=== PATIENT | female | born 1960 | race Caucasian/White ===

== ENCOUNTER 2018-10-29 17:29 | Emergency (ER) | payer OTHER ==
[~2018-10-29] VITALS: Ht 162.6 cm; Wt 59.0 kg
[~2018-10-29 17:29] MED LIST: ADVAIR 100-501 EACH INH; COMBIVENT INH14.7 GM INH; COMBIVENT RESPIM4 GM INH; OMEPRAZOLE20 MG PO; PREDNISONE10 MG PO; PREDNISONE20 MG PO; PRIMIDONE50 MG PO; PROAIR HFA8.5 GM IH; VITAMIN D2000 UNI1 PO
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
--- NOTE | 2018-10-29 20:18 | EKG ---
[facility] [address] [place], [place] [address] Signed Poor data quality, interpretation may be adversely affected Sinus tachycardia Junctional ST depression, probably normal Borderline ECG No previous ECGs available Confirmed by DENISSE MEANS MD ([id number]) on 10/29/2018 8:17:44 PM Electronically Signed By: DENISSE MEANS MD 10/29/182017 PATIENT NAME: MANDI HOWARD AGUILA Electrocardiogram DATE OF : 58 PHYSICIAN: DENISSE MEANS MD REPORT #: [id number] REPORT IS CONFIDENTIAL AND NOT TO BE RELEASED WITHOUT AUTHORIZATION
[2018-10-29] MEDS ORDERED: ULTRA-LIGHT RO1 EACH MISC (20:23)
[2018-10-29] MEDS ORDERED: KEFLEX500 MG PO (20:23)
[2018-10-29] MEDS ORDERED: NORCO 5-325 TA1 EACH PO (20:23)
== END 2018-10-29 21:28 | disposition home or self-care (01) ==
LOC: ED 17:29
PROC: 0HQLXZZ Repair Left Lower Leg Skin, External Approach (ICD-10-PCS; principal; 2018-10-29)
PROC: 0HQ1XZZ Repair Face Skin, External Approach (ICD-10-PCS; principal; 2018-10-29)
DX: S82.142A Displaced bicondylar fracture of left tibia, initial encounter for closed fracture (principal); S82.61XA Displaced fracture of lateral malleolus of right fibula, initial encounter for closed fracture; S01.81XA Laceration without foreign body of other part of head, initial encounter; Z91.048 Other nonmedicinal substance allergy status; V03.90XA Pedestrian on foot injured in collision with car, pick-up truck or van, unspecified whether traffic or nontraffic accident, initial encounter
CPT/HCPCS: 12001; 12013; 70450; 70486; 71045; 72125; 72170; 73560; 73610; 80053; 82150; 82550; 83690; 85025; 86850; 86900; 86901; 93005; 93010; 99285-25; G0480; J0690; J2270

== ENCOUNTER 2020-10-30 15:24 | Inpatient (IN) | payer MEDICAID ==
[~2020-10-30] VITALS: Ht 162.6 cm; Wt 38.7 kg
[~2020-10-30 15:24] MED LIST changes: +KEFLEX500 MG PO; +NORCO 5-325 TA1 EACH PO; +ULTRA-LIGHT RO1 EACH MISC; -VITAMIN D2000 UNI1 PO; +VITAMIN D350 MC3 PO
--- NOTE | 2020-10-30 19:15 | NUR ---
REPORT RECIEVED FROM PATIENT FINANCIAL SERVICES MANAGER
--- NOTE | 2020-10-30 19:45 | NUR ---
PT TRANSPORTED VIA STRETCHER ON BUNG REMOVER TO CCU BY THIS RN. PT ACCOMPANIED BY SISTER IN LAW TO THE CCU.
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
--- NOTE | 2020-10-30 21:19 | NUR ---
PT CALLING OUT, UNALBE TO PUSH CALL BUTTON. ASSISTED WITH REPOSITIONING PTS ARM. WILL CLOSELY MONITOR.
--- NOTE | 2020-10-30 23:56 | NUR ---
repositioned pt in bed, assisted pt with drinking water. pt denies pain or discomfort. assessment completed. lungs sound clear, breathing even and unlabored. blood pressure wnl. pt still appears pale. bony prominences protected. denies further needs. will continue to closely monitor.
--- NOTE | 2020-10-31 01:20 | NUR ---
PT RESTING WITH EYES CLOSED, BREATHING EVEN AND UNLABORED. RR=16. HEART RATE 80-85 AT REST. CALL LIGHT WITHIN REACH. WILL CONITINUE TO MONITOR.
--- NOTE | 2020-10-31 02:30 | NUR ---
ASSISTED PT WITH REPOSITIONING. ALLEVYN DRESSING PLACED ON OPEN AREA ON RIGHT ELBOW. IV FLUIDS INFUSING. ORAL CARE PROVIDED. CALL LIGHT WITHIN REACH. DENIES FURTHER NEEDS.
--- NOTE | 2020-10-31 04:30 | NUR ---
PT FLOATED ON PILLOWS. REPOSITIONED LEGS, HEELS, ELBOWS, AND NECK FOR PATIENT COMFORT. PT DENIES PAIN, BUT DOES REPORT DISCOMFORT WITH REPOSITIONING. CALL LIGHT WITHIN REACH. DENIES FURTHER NEEDS AT THIS TIME.
--- NOTE | 2020-10-31 06:36 | NUR ---
pt resting with eyes closed breathing even and unlabored. iv fluids infusing. call light within reach.
--- NOTE | 2020-10-31 07:30 | NUR ---
PATIENT SHIFT REPORT RECIEVED FROM ESL INSTRUCTIONAL ASSISTANT RN. PATIENT RESTING IN BED ASLEEP AT THIS TIME. THIS RN IN TO PLACE THUMB PUSH CALL LIGHT WITHIN REACH. WILL CONTINUE TO CLOSELY MONITOR.
--- NOTE | 2020-10-31 08:30 | NUR ---
THIS RN IN WITH PATIENT. BLINDS OPENED. PATIENT REPOSITIONED FOR COMFORT. GAVE STRAWBERRY ENSURE. ASSESSMENT COMPLETED. PATIENT NOTED TO HAVE SEVERAL ULCERS/WOUNDS FROM LYING ON THE FLORO PRIOR TO ADMISSION. SPOKE WITH PATIENT AND WILL GIVE PATIENT A BED BATH AND WASH PATIENTS HAIR. PATIENT COMPLAINS OF SOME PAIN IN HER COCCYX REGION. WILL INSPECT AREA WHEN BED BATH IS COMPLETED. SHOWED PATIENT NEW CALL LIGHT SYSTEM WITH THE 1 BUTTON. PATIENT IS ABLE TO HOLD IT IN HER HAND AND PRESS THE BUTTON EASIER THIS WAY. RICH CATHETER HAS CLEAR YELLOW URINE PRESENT. PATIENT IS VERY PLEASNT AND SOFT SPOKEN. DID SOME ROM EXERCISE WITH PATIENT PER REQUEST. WILL CONTINEU TO CLOSELY MONITOR.
--- NOTE | 2020-10-31 10:00 | NUR ---
BED BATH COMPLETED. PATIENT NOTED TO HAVE A REDDNEND BLANCHABLE AREA TO COCCYX THAT APEARS CLOSED AT THIS TIME. CLEANED AND PLACED A FOAM ADHESIVE PAD AT THIS TIME. SOME YELLOW SEROUS DRAINAGE NOTED ON BEDDING. MD MEANS IN TO SEE AREA, IT APPEARS DRAINAGE IS COMING FROM THE PATIENTS VAGINA. CLEANED AND P[LACED CLEAN LINEN UNDER PATIENT. PATIENT IS VERY FEARFUL OF FALLING ON THE GROUND. REASSURED PATIENT STAFF ARE GOING TO BE VERY CAREFUL AND TRY TO ENSURE PATIENT WILL NOT FALL. BEDRAILS UP PER PATIENT REQUEST. NEW GOWN PLACED. PATIENTS HAIR WAS WASHED AND BRAIDED. WASH CLOTH PROVIDED TO FACE. TEETH BRUSHED. CHAPSTICK ON. DURING BEDBATH THIS RN ALSO NOTED A SORE TO PATIENTS RIGHT SIDE OF HER HEAD THAT IS RAISED, SORE, AND A SMALL AREA OF A SCAB. PILLOW PLACED UNDER PATIENTS BUTTOCKS FOR COMFORT. WILL CONTINUE TO REPOSITION PATIENT. MD MEANS IN TO SEE PATIENT AFTER BATH. UPDATED ON ADDIOTNAL SKIN RELATED ISSUES. PATIENT CONTINUE STO FEEL WEK, BUT IS SLOWLY BEING ABLE TO MOVE HER EXTREMITIES. PATIENT WILL WORK WITH PT TODAY.
--- NOTE | 2020-10-31 12:09 | EKG ---
[facility] [address] [place] [address] Signed Poor data quality, interpretation may be adversely affected Sinus tachycardia Left ventricular hypertrophy with repolarization abnormality Abnormal ECG When compared with ECG of 29-OCT-2018 18:14, ST elevation now present in Inferior leads Non-specific change in ST segment in Lateral leads Nonspecific T wave abnormality now evident in Lateral leads Confirmed by DENISSE MEANS MD ([id number]) on 10/31/2020 12:09:19 PM Electronically Signed By: DENISSE MEANS MD 10/31/20 1209 PATIENT NAME: MANDI HOWARD Electrocardiogram DATE OF : 58 PHYSICIAN: DENISSE MEANS MD REPORT #: [id number] REPORT IS CONFIDENTIAL AND NOT TO BE RELEASED WITHOUT AUTHORIZATION
--- NOTE | 2020-10-31 12:19 | NUR ---
PT WORKED WITH PATIENT. PATIENT GETTING MORE MOVEMENT A LITTLE AT A ATIME. THIS RN HELPED PATIENT WITH HER CREAM OF WHEAT. DANTE IS NOT ABLE TO FEED HERSELF D/T WEAKNESS. PATIENT ATE 100% OF FOOD AND FINISHED AN ENSURE. WILL ORDER LUNCH A LITTLE BIT LATTER. PATIENT CONTINUES TO FEEL A LITTLE BETTER THAN ADMISSION. PATIENT IS NOW ABLE TO MOVE HER HANDS AND ARMS ENOUGH THAT SHE CAN DRINK FROM A CUP WITH A STRAW. ASSESSMENT REMAINS UNCHANGED OTHERWISE. WILL CONTINUE TO CLOSELY MONITOR.
--- NOTE | 2020-10-31 14:00 | NUR ---
PATIENT RESTING IN BED. REPOSITIONED FOR COMFORT. PATIENTS FAMILY CALLED AND THIS RN ASSISTED PATIENT WITH HOLDING THE PHONE. FRESH WATER PROVIDED. WILL CONTINUE TO CLOSELY MONITOR.
--- NOTE | 2020-10-31 15:32 | NUR ---
REPOSITIONED PATIENT FOR COMFORT WITH PILLOW SUPPORT. PATIENT TOLERATED WELL. PATIENT FINISHED HER LUNCH AND ATE 100% OF HER YOGURT, MASHED POTATOES, AND FRUIT. PATIENT IS MOVING HER MANDS AND ARMS MORE AND MORE AND IS STARTING TO MOVE HER LEGS. WILL CONTINUE TO CLOSELY MONITOR. NO OTHER NEEDS AT THSI TIME. WILL CONTINUE TO CLOSELY MONITOR.
--- NOTE | 2020-10-31 16:30 | NUR ---
PATIENT CALLED AGAIN AND IS UNCOMFORTABLE. REPOSITIONED PATIENT TO LAY ON HER LEFT SIDE WITH PILLOW SUPPORT. PATIENT AGREEABLE TO THIS AT THIS TIME. FRESH WARM BLANKET GIVEN. CALL LIGHT IN PATIENTS HAND. PATIENT DENIES ANY OTHER NEEDS AT THSI TIME. WILL ALLOW PATIENT TO REST ON HER SIDE.
--- NOTE | 2020-10-31 17:45 | NUR ---
PATIENT AWAKE AND REPOSITIONED TO HER BACK WITH BOTH HIPS FLOATING AT THIS TIME. MEDICATIONS GIVEN. WILL BE IN WITH PATIENT TO FEED HER DINNER.
--- NOTE | 2020-10-31 18:40 | NUR ---
THIS RN HAS BEEN IN WITH PATIENT FOR PAST HOUR. PATIENT ATE 75% OF HER SOUP, COTTAGE CHEESE, AND PEACHES. FRESH WATER PROVIDED. EDUCATED PATIENT AND DISCUSSED PLAN OF CARE WITH HER IN THE FOLLOWING DAYS ON CONTINUING TO HELP HER WITH HER STRENGTH AND NUTRITION. PATIENT VERY THANKFUL FOR THE CARE SHE HAS RECIEVED. CALL LIGHT ON PATIENTS LAP. BED LOWERED. NO OTHER NEEDS AT THIS TIME.
--- NOTE | 2020-10-31 19:20 | NUR ---
Report received, care of patient assumed at this time. Patient awake in room, call light within reach. Denies needs at this time.
--- NOTE | 2020-10-31 20:23 | NUR ---
In room for medication administration. well tolerated by patient. no issues swallowing medications. positioned pt toward right side. Son in room at this time. call light within reach. will continue to monitor.
--- NOTE | 2020-10-31 20:55 | NUR ---
SON LEFT FOR EVENING. PT REPOSITIONED AGAIN. ORAL AND RICH CARE COMPLETED. CALL LIGHT WITHIN REACH. PT DENIES FURTHER NEEDS AT THIS TIME.
--- NOTE | 2020-10-31 22:25 | NUR ---
PT RESTING WITH EYES CLOSED, BREATHING EVEN AND UNLABORED. RR16. CALL LIGHT WITHIN REACH. WILL CONTINUE TO MONITOR.
--- NOTE | 2020-11-01 | NUR ---
ASSESSMENT COMPLETED. PT ASSISTED WITH REPOSITIONING IN BED. NEW BAG OF IV FLUIDS HUNG. REPOSITIONED PILLOWS UNDER LEGS AND HIPS. PT STATES PAIN IS A TOLERABLE 2/10 AT THIS TIME. CALL LIGHT WITHIN REACH. NO FURTHER NEEDS AT THIS TIME.
--- NOTE | 2020-11-01 02:31 | NUR ---
Pt appears to be sleeping. breathing even and unlabored. rr=15. Hr 70-80 at rest. Iv fluids continue to infuse. call light within reach. will continue to monitor.
--- NOTE | 2020-11-01 04:30 | NUR ---
assessment completed. incontient pad underneath pt covered with a moderate amount of yellowish fluid. pericare completed at this time. pt repositioned in bed. call light within reach. pt denies further needs at this time.
--- NOTE | 2020-11-01 06:08 | NUR ---
PT resting with eyes closed, breatihng even and unlabored. call light within in reach, no assessed needs at this time.
--- NOTE | 2020-11-01 07:15 | NUR ---
Report received, orders acknowledged.
--- NOTE | 2020-11-01 07:42 | NUR ---
Patient sitting up in bed watching tv. Rigidity noted in upper extremities. Patient requests a sprite, which is provided. Muscle weakness noted in upper extremities and nursing staff assist patient with holding cup for patient to drink from straw. Patient denies pain, reports "I think I'm going to have a bowel movement soon." Plan for the day discussed, patient states "I'm going to take the day on." Denies further needs, call light within reach.
--- NOTE | 2020-11-01 08:00 | NUR ---
Case management in room talking with patient
--- NOTE | 2020-11-01 08:15 | NUR ---
Spoke with María and she is being feed by RN as she is unable to feed self at this point. She lives in a 1 story home and is not able to drive due to her tremors. Her son and sister in law assist her at times. She is not seen on a daily basis. Pt has not been seeing her pcp as she is no longer able to drive. He son grocery shops for her , "a little bit". Pt states she has not been taking her medications for parkinsons as she could not get the lids off her bottles. She states she does not have an income and lost her medical insurance. She has a small saving she has been living off of. She states she has been able to pay her electricity. Per RN pt arrived with multiple pressure sores as she was found down, for an unknown length of time. Attempted to call son and sister in law and realized all numbers listed are her phone number. Pt declines SNF or assisted living and plans on dc to home. Called and made a referral to APS, Wei Núñez.
--- NOTE | 2020-11-01 09:00 | NUR ---
Patient sitting up in bed watching tv. Assessment complete. Patient denies pain. Bed bath given, paula care done. Gutierrez cath continues to drain yellow urine. No vaginal discharge noted with assessment. New allevyn placed on right elbow. Small, soft BM produced. Patient cleaned and attends in place. Patient denies further needs, call light within reach.
--- NOTE | 2020-11-01 09:55 | NUR ---
V/S and I&Os done, fresh water, breakfast given, DISABILITY HEARING OFFICER helped pt. eat. RN and DISABILITY HEARING OFFICER gave bed bath, linen changed, room picked up. no other needs at this time. call light with in reach
--- NOTE | 2020-11-01 10:38 | NUR ---
Spoke with Rn and the phone number listed in the chart [phone] belongs to her sister in law Lexy. Attemped to call, but unable to reach. Mail box full.
--- NOTE | 2020-11-01 11:00 | NUR ---
Patient produced a medium, soft BM. Ernestina care provided. Patient denies pain, positioned in bed for comfort. Warm blanket provided, denies further needs. Call light within reach.
--- NOTE | 2020-11-01 11:15 | NUR ---
Occupational therapy in room working with patient
--- NOTE | 2020-11-01 11:44 | NUR ---
Patient's [id number], Lexy Roy, in room visiting with patient
--- NOTE | 2020-11-01 11:45 | NUR ---
Notified by Rn, pt's sister in law is in the room. Spoke with pt and sister in law Lexy. She is unable to provide care or stay with the pt as she is caring for her mother. She states we will need to speak with pts son. Informed I have contacted [facility]. Have requested assessment for shelter [facility], but this will not be resolved for at least 45 days. If pt goes home, she should have someone stay with her. Pt cont. to refuse SNF or [facility]. I was able to obtain correct phone numbers and called Wei Núñez at [facility] to updated. She states Bhupinder from [facility] will see pt tomorrow for an eval. I will cont. to try and reach the son, but have not been able to do yet.
--- NOTE | 2020-11-01 12:00 | NUR ---
Patient sitting up in bed visiting with family. Lunch delivered. Discussed patient's occupational therapy goal of doing her own ADLs and feeding herself. Patient agrees she wants to eat lunch independently with the understanding that nursing staff will help as needed. Case management in room talking to patient's [id number], Lexy. Medications given. Patient denies further needs, call light within reach.
--- NOTE | 2020-11-01 13:00 | NUR ---
Dr. Julian in room to assess patient and discuss POC. Orders acknowledged to D/C lopez catheter and patient status changed to med surg.
--- NOTE | 2020-11-01 13:10 | NUR ---
pt. had 2 bowels movements in the bed. RN and REEL REPAIRER cleaned pt. and bed linens. no other needs at this time. call light within reach
--- NOTE | 2020-11-01 13:22 | NUR ---
CAREER REPRESENTATIVE and RN readjusted pt. in bed and got her new warm blankets. no other needs at this time. call light within reach
--- NOTE | 2020-11-01 13:46 | NUR ---
pt. used call light to ask for a boost up in bed. RN and UTILITY ENGINEER went in and moved the pt. up in bed. no other needs at this time. call light wiht in reach
--- NOTE | 2020-11-01 14:30 | NUR ---
Patient sitting up in bed watching tv. Denies needs at this time, call light within reach.
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
--- NOTE | 2020-11-01 15:30 | NUR ---
pt. had bowel movement, COMPUTER SYSTEMS ARCHITECT cleaned pt. and bed. no other needs at this time. call light within reach
--- NOTE | 2020-11-01 15:50 | NUR ---
PHYS THERAPY IN ROOM WITH PATIENT AT THIS TIME.
[2020-11-01] MEDS ORDERED: CARBIDOPA-LEVO1 EAC1 PO (16:50)
--- NOTE | 2020-11-01 17:03 | NUR ---
Was able to speak with son, Darci. Updated to [employer] and APS and pt not wanting to go to a SNF or [facility]. He states he is aware, family want pt to go into [facility], but pt refuses. He states he would be able to stay with pt, but her home will require some repairs.
--- NOTE | 2020-11-01 17:08 | NUR ---
Patient sitting up in bed watching tv. Dinner delivered, patient denies further needs. Call light within reach.
--- NOTE | 2020-11-01 19:28 | NUR ---
REPORT GIVEN TO REHABILITATION SERVICES COUNSELOR MANDY. PT TO BE MOVED TO 120.
--- NOTE | 2020-11-01 21:06 | NUR ---
pt MOVED FROM CCU TO [facility]
--- NOTE | 2020-11-01 21:15 | NUR ---
pt REQUESTED A BED WITH CONTROLS. TRANSFERRED TO CHAIR MAX 2PA, THEN TO BED. PILLOWS PROVIDED UNDER ARMS. FEET PROPPED PER REQUEST. ASSESSMENT DONE. MULTIPLE ALLEVYNS VISUALIZED. ALL CDI. NO DRAINAGE NOTED ON WOUNDS OPEN TO AIR. BOWEL TONES HYPERACTIVE. PROVIDED WITH FRESH WATER AND SODA. BUTTON CALL LIGHT IN HAND. BED CONTROLS WITHIN REACH.
--- NOTE | 2020-11-01 22:10 | NUR ---
PT CALLED, STATED THAT SHE HAD WET ATTENDS. IN PROCESS OF CHANGING HER SHE HAD 2 INCONT STOOLS, LIQUID. PT ABLE TO ASSIST WITH THE TURNING, HANGING ON TO THE SIDE RAIL, BUT DEPENDENT ON MOVING HER LEGS. ONCE DONE, REPOSITIONED TO PT COMFORT. CALL LIGHT WITH IN REACH, LIGHTS OFF.
--- NOTE | 2020-11-02 00:14 | NUR ---
pt CALLED, PLACED ON BED VELASQUEZ. CALLED WHEN DONE. LOOSE BM WITH CHUNKS. PERICARE DONE. CALL LIGHT IN HAND. BED REMOTE WITHIN REACH. REPOSITIONED.
--- NOTE | 2020-11-02 01:00 | NUR ---
CALL LIGHT ANSWERED. pt INCONTINENT OF STOOL AND URINE. ATTENDS CHANGED. HEEL PROTECTORS PLACED ON pt REDNESS NOTED ON HEELS. CALL LIGHT BUTTON IN HAND. NO ADDITIONAL REQUESTS.
--- NOTE | 2020-11-02 02:40 | NUR ---
CALL LIGHT ON. pt PLACED ON BED VELASQUEZ, DID NOT HAVE URINE OR STOOL. BED VELASQUEZ REMOVED. ASSISTED TO REPOSITION. ASSESSMENT DONE. NO CHANGES. CALL LIGHT IN HAND.
--- NOTE | 2020-11-02 04:00 | NUR ---
FRANKY SINGLETON TO ROOM TO ASSIST pt TO REPOSITION.
--- NOTE | 2020-11-02 05:25 | NUR ---
VITALS DONE. pt RECENTLY CHANGED. NO REQUESTS AT THIS TIME. CALL LIGHT WITHIN REACH.
--- NOTE | 2020-11-02 06:23 | NUR ---
PATIENT ASSISTED ONTO BED VELASQUEZ. PATIENT HAD MEDIUM SIZED LOOSE STOOL. PATIENT IS IN BED WATCHING TV. PATIENT DENIES ANY FURTHER NEEDS AT THIS TIME. CALL LIGHT IN REACH.
--- NOTE | 2020-11-02 07:05 | NUR ---
REPORT RECEIVED FROM FRANKY MOBLEY. PT RESTING IN BED WITH HEAD OF BED ELEVATED TO 30 DEGREES. PT REPORTS HER DEPENDS ARE SOILED AGAIN, PILING CUTTER'S TO BEDSIDE TO ASSIST PT WITH DEPENDS CHANGE. PT DENIES PAIN AT THIS TIME AND REPORTS SHE FEELS ABLE TO FEED HERSELF THIS MORNING AND REPORTS "I CAN'T LIFT THE CUP AND TAKE A DRINK." PT DENIES ADDITIONAL REQUESTS OR COMPLAINTS AT THIS TIME. CALL LIGHT WITHIN REACH. BED RAILS UP.
--- NOTE | 2020-11-02 07:30 | NUR ---
MORNING ASSESSMENT AND MEDICAITON DUE. PT RESTING IN BED ON BACK WITH HEAD OF BED ELEVATED TO 10 DEGREES. PT DENIES PAIN AND NAUSEA "EXCEPT WHEN THEY MOVE ME MY SHOULDER HURTS." IV FLUSHES WELL, SALINE LOCKED, ALCOHOL CAP APPLIED. PT ORIENTED TO ALL, PT REPORTS BASELINE NEUROPATHY AND "TINGLING" IN FEET. TREMORS NOTED. COMPLETE WOUND ASSESSMENT DONE (SEE RN NOTE). MADY LIFT UP TO CHAIR. PT TOLERATED TRANSFER WELL. PT POSITIONED WITH PILLOWS TO SITTING POSITION FOR BREAKFAST. PT FEEDING SELF. CALL LIGHT WITHIN REACH. PT EASILY VIEWED FROM NURSES STATION.
--- NOTE | 2020-11-02 07:30 | NUR ---
WOUND ASSESSMENT: 1. REDNESS TO GLUTEAL AREA MEASURING 4.5 CM CIRCUMFRENCIAL, 1X1CM SKIN BREAKDOWN IN CENTER OF REDDENED AREA. ALLEVYN IN PLACE 2. STAGE 2 PRESSURE ULCER TO RIGTH HIP MEASURING 5CM X3CM. ALLEVYN IN PLACE 3. STAGE 2 PRESSURE ABOVE COCCYX MEASURING 5CM BY 2CM WITH 1 CM OF REDDENED SKIN NOTED AROUND WOUND. ALLEVYN IN PLACE 4. 1.5 CM DARKENED AREA, SCAB LIKE TO LEFT BIG TOE. OPEN TO AIR 5. 1 CM CIRCUMFRENTIAL REDDENED AREA NOTED AT BASE OF LEFT BIG TOE, OPEN TO AIR 6. 1.5 CIRCUMFRENTIAL HARD LUMP WITH .0.5 CM BLISTER IN CENTER TO PROXIMAL BOTTOM OF RIGHT FOOT - OPEN TO AIR. 7. 2.5 CM X1.5 CM REDDENED AREA WITH DRY PEELING SKIN TO RIGHT ANKLE, OPEN TO AIR. 8. 2CM X1CM SCAPED AREA TO PROXIMAL RIGHT ANKLE. OPEN TO AIR. 9. 2CM X 1CM REDDENED AREA TO MEDIAL LEFT KNEE - OPEN TO AIR. 10. 3CM X1CM STAGE 2 PRESSURE ULCER TO OUTTER, PROXIMAL RIGHT CALF. DRAINING MODERATE AMOUNTS OF YELLOW DRAINAGE ONTO DRESSING. NEW ALLEVYN APPLIED. 11. 4CM BY 4CM STAGE 1 PRESSURE ULCER TO LEFT SHOULDER, DRAINING SMALL AMOUTS OF YELLOW DRAINAGE. NEW ALLEVYN APPLIED. 12. 6 X 3 CM BRUISE TO LEFT HAND FROM PREVIOUS IV ATTEMPT. OPEN TO AIR. 13. 2CM X1CM STAGE 2 PRESSURE ULCER WITH SCAB NOTED TO RIGTH UPPER SHOULDER, ALLEVYN IN PLACE. SMALL AMOUNTS OF RED AND YELLOW DRAINAGE NOTED ON PREVIOUS DRESSING. 14. 1CM BY 0.5CM SCAB NOTED TO RIGHT ELBOW WITH SMAL AMOUNTS RED DRAINAGE ON PREVIOUS DRESSING. NEW ALLEVYN APPLIED.
--- NOTE | 2020-11-02 09:10 | NUR ---
Received call from Bhupinder Greenwood at [facility]. He would like review of pts condition. While I was speaking with him, Dr. Julian came to my office so Bhupinder was also able to discuss with Dr. He will visit pt. today for evaluation. I discussed my concerns with Bhupinder: 1. Pt is 60 and does not have any insurance and has not applied for disability. She does not have payment source for placement to a SNF or an [facility]. Pt refused both when I attempted to discuss with her. 2. Cinthya Hosea met with pt yesterday and attempted to submit for OHP. Case was flagged and Cinthya was notified, "Needs a worker Review". She is unsure if pt will qualify for insurance. Cinthya held for 1 hour attempting to clairfy but phone call was disconnected. She will try again today. 3. Patient is a 2 person assist and has multiple pressure sores. Son agreed to spend the night at the patients home, but pt will be home alone during the day if she is discharged to home. Wounds will worsen as pt is unable to walk without 2 person assist. Sister in law stated she will check on pt, but cannot provide care. 4. Pt insists on discharge to home when able, refuses if funding is found. Bhupinder asked Dr. Julian if he can recommend pt be placed, and Dr. Julian updated he has already done so and pt declined. Bhupinder and I discussed we are unable to force a patient to live in a facility. He is concerned this is a case of self harm, but Dr Julian explained pt lost her medical insurance and has not been able to cont. visits or medications as prescribed. Updated Bhupinder, I will discuss with family to check if they can encourage placement. He will see and evaluate if pt would qualify for [facility] medicaid and then pass his report on for second eval. He reminded me, this can take up to 45 days.
--- NOTE | 2020-11-02 10:16 | NUR ---
THIS RN TO ROOM TO CHECK ON PT. PT FINISHING WORK WITH PHYSICAL THERAPY. PHYSICAL THERPISTMELLY, STATE PT WAS ABLE TO AMBULTE WITH ASSISTANCE AROUND THE BED. PT BACK TO CHAIR. WARM BLANKETS PROVIDED. PT POSITIOINED WIHT PILLOWS FOR COMFORT. PT DENIES PAIN AND NAUSEA. ALLEVYN DRESSING TO RIGHT SHOULDER FALLING OFF, NEW ALLEVY APPLIED. SMALL AMOUNT OF YELLOW DRAINAGE NOTED ON RIGHT SHOULDER. PT REPORTS SHE HAS NO ADDITIONAL REQUESTS OR COMPLAINTS. CALL IN PTS RIGHT HAND.
--- NOTE | 2020-11-02 10:23 | NUR ---
DENNYS FROM [employer]ULT [employer] ARRIVED TO VISIT WITH PT. UPDATED BY THIS RN AND DENZEL, CASE MANAGEMENT. DENNYS TO ROOM TO VISIT WITH PT.
--- NOTE | 2020-11-02 10:31 | NUR ---
DAY SURGERY CALLED TO INQUIRE ABOUT WHEN THE WOUND CONSULTATION RN MAY BE ABLE TO ARRIVE TO REVIEW PTS WOUNDS. DHARMESH CHRISTOPHER RN STATES SOMEONE WILL BE INTO REVIEW WOUNDS THIS AFTERNOON.
--- NOTE | 2020-11-02 11:40 | NUR ---
THIS RN TO ROOM TO CHECK ON PT. PT REPORTS SORNESS IN HER "BACKSIDE." PT REQUESTS TO GET BACK TO BED. 2 PERSON ASSIST WITH FRONT WHEEL WALKER SLOWLY BACK TO BED. PT SHAKY ON FEET. PT ABLE TO TAKE ABOUT 4-6 SMALL STEPS, PTS FEET DIRECTED BY THIS RN. PT POSITIONED IN BED FOR COMFORT AND STATES "THAT FEELS SO GOOD." DEPENDS CHANGED, ASHLEY CARE DONE. WARM BLANKETS PROVIDED. NO ADDITIONAL REQUESTS OR COMPLAINTS. CALL LIGHT IN PTS RIGHT HAND. BED RAILS UP.
--- NOTE | 2020-11-02 12:00 | NUR ---
MEDICATION DUE. GIVEN ORDERED. PT EATING LUNCH. NO ADDITIONAL REQUESTS OR COMPLAINTS. CALL LIGHT WITHIN REACH. BED RAILS UP.
--- NOTE | 2020-11-02 13:08 | NUR ---
AFTERNON ASSESSMENT DUE. PT REST IN BED. PT REPOSITIONED TO LEFT SIDE, SUPPORTED WITH PILLOWS. PT DENIES PAIN AND NAUSEA REPORTING "I'M JUST STIFF." PT REPORTS SHE IS VERY PROUD OF HERSELF FOR WALKING THIS MORNING AND HAS BEEN DOING "CLENCHES" IN BED DIRECTED BY PHYSICAL THERAPY. PT STATES SHE IS USING BED CONTROLS TO REPOSITION HERSELF. TREMORS NOTED PER PTS BASELINE, WEAKNESS AND DIFFICULTY CONTROLING LOWER EXTREMITIES NOTED. NO CHANGES TO SKIN WOUNDS FROM THIS MORNING'S ASSESSMENT. WOUNDS REMAIN COVERED WITH ALLEVYNS, ALL ALLEVYNS C/D/I AT THIS TIME. PT UPDATED ON PLAN OF CARE AND IS EXPECTING THE WOUND NURSE THIS AFTERNOON. PTS SKIN GENERALLY DRY. LOTION APPLIED. DEPENDS DRY AT THIS TIME. PT OFFERED A SHOWER. PT DECLINES STATING "MABYE TOMORROW" PT REPORTS FEELIGN TIRED AFTER ALL THE ACITVITY THIS MORNING. NO ADDITIONAL REUESTS OR COMPLAINTS. CALL LIGHT WIHTIN REACH. BED RAILS UP. PT TALKING WITH FRIEND ON THE PHONE.
--- NOTE | 2020-11-02 14:26 | NUR ---
MED REC COMPLETE
--- NOTE | 2020-11-02 14:30 | NUR ---
Spoke with William and pt has not been signed up for the OHP. When submitted for insurance, OHP showed SS in use by another pt. Verified SS with pts sister in law from old records she had submitted to health care a few years ago. Pt and sister in law state pt lost her SS card some time ago. Sister in law states she spoke with SS today about Widows pay and they confirmed pt's number and pulled her up with the same number we have listed.
--- NOTE | 2020-11-02 14:43 | NUR ---
THIS RN TO ROOM TO CHECK ON PT. PT RESTING IN BED ON RIGHT SIDE. PT REPORTS HER DEPENDS IS WET. DEPENDS CHANGED, ASHLEY CARE DONE. PT REPOSITIONED BACK TO LEFT SIDE. PT DENIES PAIN AND NAUSEA REPORTING "ONLY STIFFINESS." PT DENIES ADDITIONAL REQUESTS OR COMPLAINTS. PT TALKING ON PHONE WITH FRIEND. BED RAILS UP. CALL LIGHT WITHIN REACH.
--- NOTE | 2020-11-02 15:31 | NUR ---
WOUND CONSULT NURSE, DHARMESH CHRISTOPHER, CALLED AGAIN. STATES SHE WILL BE HERE WITHIN THE NEXT HALF HOUR.
--- NOTE | 2020-11-02 15:37 | NUR ---
Called and spoke with Mi Sosa at [facility], asked if Bhupinder Greenwood and spoken with her after his evaluation. He has not done so, but Wei stokes [facility] has. Updated given on the case, we then discussed pt does not have OHP, SSI, or medicaid. Per Mi, if pt does not have any of the above, she does not qualify for any of their services. She request I call her back, when and if pt is able to get insurance from the OHP.
--- NOTE | 2020-11-02 15:48 | NUR ---
THIS RN TO ROOM WITH MD FOR ROUNDS. PT DENIES PAIN AND NAUSEA. MD REVIEWS COMPLETE WOUND ASSESSMENT LIST. PT REPOSITIONED TO BACK. KNEES AND ARMS SUPPORTED WITH PILLOWS. HEEL PROTECTORS IN PLACE. PT DENIES ADDITIONAL REQUESTS OR COMPLAINTS. CALL LIGHT WIHTIN REACH. BED RAILS UP.
--- NOTE | 2020-11-02 16:43 | NUR ---
DR. MEANS CALLED REGARDING TWO DOSES OF LEVO/CARBO SEEN IN EMAR. DR. MEANS STATES HE RECENTLY CHANGED THE TIMING OF THE LEVO/CARBO TO 7, 11, 15, AND 19 AND ONLY ONE DOES IS TO BE GIVEN NOW. THIS RN TO ROOM. PT WORKING WITH WOUND CONSULTATION RN. MEDICATION GIVEN. PHARMCIST CALLED TO RESOLVE SECOND DOSE IN EMAR. PT DENIES ADDITIONAL REQUESTS OR COMPLAINTS. CALL LIGHT WITHIN REACH. BED RAILS UP.
--- NOTE | 2020-11-02 16:56 | NUR ---
RETURN CALL TO PTS SON HELEN. HELEN UPDATED AND STATES HIS QUESTIONS HAVE BEEN ANSWERED. CALL TRANSFERED TO ROOM SO HELEN CAN TALK WITH HIS MOTHER. PT ASSISTED WITH ANSWERING CALL.
--- NOTE | 2020-11-02 17:07 | NUR ---
JOSE [id number]: PT IS SEEN FOR A WOUND CONSULT OF MULTIPLE WOUNDS. THE PT REPORTS HAVING FALLEN AT HOME AND WAS LAYING ON HER RIGHT SIDE FOR A FEW DAYS BEFORE BEING HELPED. SHE HAS VARIOUS WOUNDS COVERING HER BODY FOLLOWS: -RIGHT SHOULDER: UNSTAGEABLE PRESSURE INJURY WITH STABLE ESCHAR -RIGHT LATERAL ELBOW: STAGE II PRESSURE INJURY -RIGHT SUPERIOR HIP: UNSTAGEABLE PRESSURY INJURY WITH ADHERENT SLOUGH -RIGHT INFERIOR HIP: UNSTAGEABLE PRESSURE INJURY WITH ADHERENT SLOUGH -RIGHT LATERAL CALF: UNSTAGEABLE PRESSURE INJURY WITH ADHERENT SLOUGH -RIGHT LATERAL ANKLE: UNSTAGEABLE PRESSURE INJURY WITH STABLE ESCHAR -LEFT SHOULDER: STAGE II PRESSURE INJURY -LEFT MEDIAL KNEE: BLACHABLE AREA OF LOCALIZED REDNESS, COVERED WITH FOAM -LEFT MEDIAL FOOT: STAGE II PRESSURE INJURY -COCCYX: BLANCHABLE AREA OF LOCALIZED REDNESS, COVERED WITH FOAM ALL MEASUREMENTS AND DRESSING/TREATMENTS ARE PROVIDED IN THE COMPLEX WOUND ASSESSMENT. IT IS RECOMMENDED THAT THE DRESSINGS BE LEFT IN PLACE FOR LONG POSSIBLE WITH THE IODOSORB IN PLACE; CHANGE DRESSINGS NEEDED FOR SOILING. THIS RN WILL ATTEMPT TO COME SEE THE PT THIS Sunday11/04/20 TO REASSESS HER WOUNDS.
--- NOTE | 2020-11-02 17:07 | NUR ---
PT HERE FOR SEPSIS. PT UP WITH 2 PERSON ASSIST AND FRONT WHEEL WALKER FOR PHYSICAL THERAPY, UP TO CHAIR AND BACK TO BED THIS SHIFT. PT TOELRATING REGULAR DIET AND ABLE TO FEED HERSELF THIS SHIFT. PT CONTINUES TO BE VERY UNSTEADY ON FEET AND HAS DIFFICTULTY WITH AMBULATION. TIME SCHEDULE FOR PTS LEVO/CARBO CHANGED BY MD THIS SHIFT. MULTIPLE SKIN WOUNDS PRESENT. WOUND NURSE CONSULTATIONS THIS SHIFT WITH NEW DRESSINGS IN PLACE. PT INCONTINANT AT BASELINE, VOIDING QUANTITY SUFFICIENT, DEPENDS IN PLACE, ASHLEY CARE DONE. PT USES CALL LIGHT APPROPRIATLY.
--- NOTE | 2020-11-02 17:33 | NUR ---
DINNER ARRIVED. THIS RN TO ROOM TO CHECK ON PT. DINNER TRAY ADJUSTED FOR PTS EASE OF EATING. PT ASSISTED WITH OPENING CONTAINERS. PT DENIES PAIN, NAUSE AND ADDITIONAL REQUESTS CALL LIGHT WITHIN REACH. BED RAILS UP.
--- NOTE | 2020-11-02 18:11 | NUR ---
THIS RN TO ROOM TO CHECK ON PT. PT RESTING IN BED WITH EYES CLOSED. HEAD OF BED ELEVATED TO 40 DEGREES. PT RESTING ON BACK WITH HIPS FLOATED. RESPIRATIONS EVEN AND UNLABORED. CALL LIGHT WITHIN REACH. BED RAILS UP.
--- NOTE | 2020-11-02 18:52 | NUR ---
MEDICATION DUE. THIS RN TO ROOM TO CHECK ON PT. PT REPORTS HER DEPENDS ARE DRY. PT REPOSITIONED TO RIGHT SIDE WITH HEAD OF BED ELEVATED TO 30 DEGREES. MEDICATION GIVEN (SEE MAR). PT REPORTS FEELING COMFORTABLE, PILLOWS USED FOR SUPPORT. HEEL PROTECTORS IN PLACE. BED RAILS UP. CALL LIGHT IN PTS RIGHT HAND.
--- NOTE | 2020-11-02 19:41 | NUR ---
REPORT RECEIVED FROM FAISAL WILKINS. PT LAYING IN BED SLEEPING AT THIS TIME AND WAS LEFT UNDISTURBED. WILL CONTINUE PLAN OF CARE.
--- NOTE | 2020-11-02 19:56 | NUR ---
ASSISTED PRIMARY RN MANI IN CHANGING THE PT'S ATTENDS. SHE IS NOW RESTING IN BED COMFORTABLY AND SON IS IN THE ROOM. CALL LIGHT IS IN HAND.
--- NOTE | 2020-11-02 20:45 | NUR ---
THIS RN IN TO ASSESS PT AND ADMINISTER ORDERED MEDICATIONS. PT AWAKE AND ALERT LAYING IN BED. PT REPORTS NO PAIN AT THIS TIME. SCHEDULED MEDICATION ADMINISTERED. PT ASSESSED, WOUND SITES COVERED IN ALLEVYN PADS AND ARE C/D/I WITH NO DRAINAGE/SOILING NOTED. PT REPORTS NO FURTHER NEEDS AT THIS TIME, WILL CONTINUE PLAN OF CARE. CALL LIGHT IN REACH, BED IN LOWEST POSITION, WILL CONTINUE PLAN OF CARE.
--- NOTE | 2020-11-02 22:55 | NUR ---
THIS RN IN TO TURN PT. PT SLEEPING IN BED AND AWOKE EASILY. PT TURNED FROM HER BACK TO THER LEFT SIDE AT THIS TIME. PT REPORTS NO FURTHER NEEDS AT THIS TIME, WILL CONTINUE PLAN OF CARE. CALL LIGHT IN REACH, BED IN LOWEST POSITION.
--- NOTE | 2020-11-03 01:36 | NUR ---
THIS RN IN TO TURN PT ON TO OTHER SIDE. PT LAYING IN BED SLEEPING ON LEFT SIDE. FRANKY VAN IN TO ASSIST. PT WAS INCONTINENT AND HAD VOIDED, PERICARE DONE AT THIS TIME, NEW ATTENDS IN PLACE. PT THEN REPOSITIONED IN BED AND ONTO RIGHT SIDE. PT REPORTS NO FURTHER NEEDS AT THIS TIME WHEN ASKED, WILL CONTINUE PLAN OF CARE. CALL LIGHT IN REACH, BED IN LOWEST POSITION, WILL CONTINUE PLAN OF CARE.
--- NOTE | 2020-11-03 04:00 | NUR ---
RESPONDED TO PT CALL LIGHT, PT STATED SHE NEEDED A CHANGE. PT LAYING IN BED AWAKE AND HAD AN EPISODE OF URNINARY INCONTINENCE. PERICARE DONE WITH THE HELP OF FRANKY VAN, NEW ATTENDS IN PLACE, PT REPOSITIONED IN BED WITH PILLOWS UNDER HIPS. PT VITALS TAKEN AT THIS TIME AND PT ASSESSED. COVERED WOUND SITES SHOW NO NEW SIGNS OF DRAINAGE. PT PROVIDED WITH JUICE AND WATER PER HER REQUEST. PT REPORTS NO FURTHER NEEDS WHEN ASKED, CALL LIGHT WITHIN REACH, BED IN LOWEST POSTION, WILL CONTINUE PLAN OF CARE.
--- NOTE | 2020-11-03 05:11 | NUR ---
CALL LIGHT ANSWERED. ATTENDS CHANGED. pt INCONTINENT OF URINE, CHUX CHANGED. pt REPOSITIONED WITH PILLOWS UNDER LEFT HIP. LEGS ELEVATED, HEEL PROTECTORS ON. CALL LIGHT AND PERSONAL SUPPLIES IN REACH.
--- NOTE | 2020-11-03 06:56 | NUR ---
IN pt ROOM FOR MEDICATION ADMINISTRATION. pt STATES "I NEED MY DIAPER CHANGED". INCONTINENT OF URINE. ATTENDS, CHUX CHANGED. REQUESTING TO LIE ON BACK, EDUCATION PROVIDED ON PRESSURE SORE PREVENTION, AGREEABLE TO FLOAT PILLOWS UNDER HIPS BILATERALLY. LEGS ELEVATED ON PILLOWS, pt REQUESTING BREAK FROM HEEL PROTECTORS. CALL LIGHT AND PERSONAL SUPPLIES IN REACH. WARM BLANKET PROVIDED.
--- NOTE | 2020-11-03 07:14 | NUR ---
REPORT RECEIVED FROM FRANKY ZARATE. PT RESTING IN BED ON BACK WITH HEAD OF BED ELEVATED TO 45 DEGREES. PT SUPPORTED WITH PILLOWS. PT DENIES PAIN AND NAUSEA AND REPORTS SHE IS GLAD SHE WAS ABLE TO SLEEP FOR 5 HOURS LAST NIGHT. PT DENIES ADDITIONAL REQUESTS OR COMPLAINTS. CALL LIGHT WITHIN REACH. BED RAILS UP.
--- NOTE | 2020-11-03 07:22 | NUR ---
WOUND ASSESSMENT: 1. ALLEVYN TO LEFT FOOT UNDER BIG TOE - C/D/I 2. DRY SKIN ABOVE RIGTH ANKLE WITH 0.5 CM SCAB IN THE CENTER - OPEN TO AIR. 3. ALLEVYN TO OUTTER EDGE OF RIGHT FOOT C/D/I. 4. 2CM CIRCUMFRENTIAL BUMP/CALLUS TO BOTTOM OF RIGHT FOOT - OPEN TO AIR. 5. ALLEVYN TO OUTTER EDGE OF RIGHT CALF SHOWS 2CM CIRCUMFRENTIAL SHADOWING, ALELVYN LEFT IN PLACE AT THIS TIME. WELL INTACT. 6. ALLEVYN TO MEDIAL EDGE OF LEFT KNEE C/D/I. 7. ALLEVYN TO RIGHT ELBOW LOOSE AND PEELILNG OFF. WOUND BED MEASURES 2CM BY 3CM. NEW JACKELYN COLLAGEN AND ALLEVYN PLACED. JACKELYN COLLAGIN APPLIED TO WOUND BED 8. ALELVYN TO RIGHT SHOULDER C/D/I. 9. ALLEVYN TO LEFT SHOULDER C/D/I. 10. ALLEVYN TO CAUDIAL RIGHT HIP SHOWS 1CM X7CM YELLOW SHADOWING, EDGES WELL INTACT, DRESSING 30% SATURATED, WILL LEAVE IN PLACE FOR NOW. 11. ALLEVYN TO COCCYX C/D/I. 12. ALLEVYN TO DISTAL RIGHT HIP SHOWS 1CM X5CM YELLOW SHADOWING, EDGES WELL INTACT. DRESSING 20% SATURATED. WILL LEAVE IN PLACE FOR NOW 13. BRUISES NOTED TO BILATERAL HANDS, PT STATES FROM PREVIOUS IV ATTEMPTS. 14. 1.5 CM DARKED AREA NOTED TO LEFT BIG TOE. LEFT OPEN TO AIR.
--- NOTE | 2020-11-03 07:32 | NUR ---
MORNING ASSESSMENT DUE. PT AWAKE AND RESTING IN BED WITH HEAD OF BED ELEVATED TO 35 DEGREES. PT REPORTS HER DEPENDS IS SOILED. 1 PERSON ASSIST WITH FRONT WHEEL WALKER UP TO STAND AND PIVOT TO COMODE. PT REPORTS FEELING STRONGER THIS MORNING. PT DENIES PAIN AND NAUSEA. FULL WOUND ASSESSMENT DONE, SEE RN NOTE. PT VOIDS 250ML CLEAR YELLOW URINE AND HAS SOFT FORMED MEDIUM SIZED BOWEL MOVEMENT. ASHLEY CARE DONE. FRESH DEPENDS IN PLACE. 1 PERSON ASSIST PIVOT TO CHAIR. PT POSITIONED WITH PILLOWS. ASSESSMENT DONE: LUNG SOUNDS CLEAR. PT NOTIABLY STRONGER AND MORE COORDINATED THIS MORNING. PT ABLE TO TAKE STEP WITH 1 PERSON ASSIST AND WALKER USE. O2 SATURATIONS AT 92% ON ROOM AIR. PT ANTICIPATING BREAKFAST. CALL [facility] IN [facility]. ICE WATER REVILLED. 7-UP PROVIDED PER PT REQUEST. WARM BLANKETS PROVIDED. NO ADDITIONAL REQUESTS OR COMPLAINTS. PT EASILY VIEWED FROM NURSES STATION.
--- NOTE | 2020-11-03 09:40 | NUR ---
THIS RN TO ROOM TO CHECK ON PT. PT UP IN CHAIR, WORKING WITH OCCUPATIONAL THERAPY. OCCUPATIONAL THERPIST STATES PT WAS ABLE TO AMBULATE TO THE RESTROOM AND STAND AT THE SINK TO BRUSH TEETH FOR 3 MINUTES. PT CONTINUES TO REPORT INCREASED STRENGTH TODAY. PT DENIES PAIN AND NAUSEA. NO ADDITIONAL REQUESTS OR COMPLAINTS. PT CONTINUES WORKING WITH OCCUPATIONAL THERAPIST.
--- NOTE | 2020-11-03 10:51 | NUR ---
MEDICATION DUE. PT UP TO CHAIR WORKING WITH COOLER SUPERVISOR. PT DENIES PAIN AND NAUSEA. MEDICAITON GIVEN (SEE MAR). PT SWALLOWS TABLETS (CUT IN HALF WITHOUT) DIFFICULTY. I.S. USE DEMONSTRATED, PT REACHES 750ML. PT PREPARING FOR SHOWER WITH COOLER SUPERVISORSTACI Person. NO ADDITIONAL REQUESTS OR COMPLAINTS. CALL LIGHT WITHIN REACH.
--- NOTE | 2020-11-03 11:48 | NUR ---
1PA WITH FWW TO BATHROOM FOR SHOWER. PATIENT HELPED WITH MUCH OF THE SHOWER. BACK TO CHAIR, LEGS ELEVATED. WARM BLANKETS PROVIDED. CALL LIGHT AND SIDE TABLE WITHIN REACH.
--- NOTE | 2020-11-03 12:10 | NUR ---
Spoke with María, states feeling better and working with PT. Pt is able to stand, but remains a 1-2 person assist. No word on insurance through the OHP at this time.
--- NOTE | 2020-11-03 12:22 | NUR ---
LUNCH ARRIVED. PT UP TO CHAIR. PT ASSISTED WITH REPOSITIONIN PERSON ASSIST UP TO STAND WITH FRONT WHEEL WALKER. PILLOWS ADJUSTED, PT BACK TO SITTING IN CHAIR. PT ASSISTED WITH PREPARING LUNCH. PT REPORTS "THINGS ARE SO MUCH BETTER WITH YOUR HELP." PT DENIES ADDITIONAL REQUESTS OR COMPLAINTS. CALL LIGHT WITHIN REACH. PT EATING LUNCH.
--- NOTE | 2020-11-03 13:07 | NUR ---
Called and spoke with Cinthya, She spoke with the state today and they confirmed the SS is the [facility]. They are completing the changes in the system and are removing the hold. She is unsure what this means to a time for insurance for María or if she qualifies. I spoke to María and she states her son will be able to stay with her around the clock. I discussed with her, when I spoke with him, he stated nights only. She said I will need to clarify with him. We discussed she may need to go to and Assisted living for a month or so until her wounds heal and she can walk again. She states she will think about.
--- NOTE | 2020-11-03 13:38 | NUR ---
RD SPOKE W/ PATIENT TO ASK ABOUT MEAL CONSUMPTION THROUGHOUT THE DAY. PT STATED SHE ATE A BIG BREAKFAST- HASH BROWNS, EISENBERG, EGGS, AZERI YOGURT WITH BERRIES. FOR LUNCH PT HAD A HEAD CHOPPER'S SALAD WITH SALMON, CIDER, CARROT CAKE SLICE, AND AN ENSURE. SHE SEEMS TO HAVE A GOOD APPETITE AND WAS OPEN TO HAVING ANOTHER ENSURE AT 3:30PM TODAY FOR A SNACK. PT SEEMS MOTIVATED TO INCREASE HER ENERGY INTAKE FOR PHYS THERAPY AND OT, AND OPTIMIZE HER RECOVERY DURING HER STAY.
--- NOTE | 2020-11-03 13:39 | NUR ---
AFTERNOON ASSESSMENT DUE. THIS RN TO ROOM. PT UP TO CHAIR. PT REPORTS SHE IS READY TO GET BACK TO BED. 1 PERSON ASSIST WITH FRONT WHEEL WALKER UP TO BEDSIDE COMODE. PT VOIDS 100ML CLEAR YELLOW URINE WITH OUT ISSUE. ASHLEY CARE DONE. DEPENDS CHANGED. DRESSINGS TO RIGHT HIP AND COCCYX C/D/I. 2 PERSON ASSIST WITH FRONT WHEEL WALKER BACK TO BED. ASSESSMENT DONE: NO CHANGES TO DRESSINGS/WOUNDS SINCE THIS MORNINGS ASSESSMENT. PT DENIES PAIN AND NAUSEA. PT CONTINUES TO REPORT STRENGTH IS IMPROVING. PT ABLE TO TAKE STEPS WITH LESS SHUFFLEING GATE NOTED. PT MOVES MORE QUICKLY THAN YESTERDAY WELL. LOTION APPLIED TO LEGS AND ARMS. PT UPPORTED WITH PILLOWS. PT USES I.S. REACHING 750ML. TREMORS WORSE THIS AFTERNOON ESPICIALLY WHEN PT ATTEMPTS FOCUSED ACTIVITY SUCH I.S. USE. PT DENIES ADDITIONAL REQUESTS OR COMPLAINTS. CALL LIGHT WITHIN REACH. BED RAILS UP.
--- NOTE | 2020-11-03 14:32 | NUR ---
PATIENT RESTING IN BED, EYES CHLOSED. WOKE TO VOICE, VITALS AND I&OS CHARTED, FRESH ICEWATER PROVIDED, CALL LIGHT IN REACH
--- NOTE | 2020-11-03 15:57 | NUR ---
THIS RN TO ROOM TO CHECK ON PT. PT RESTINGIN BED WITH HEAD OF BED ELEVATED TO 25 DEGREES. PT DENIES PAIN AND NAUSEA. MD CONSULTED REGARDING NEED FOR IV. MD STATES OK TO DC IV AT THIS TIME AND LEAVE IV OUT. IV DC'D PER PROTOCOL, JANUSZ AND AUSTYN APPLIED. DINNER AND BREAKFAST ORDERS PLACED FOR PT. STRAWBERRY ENSURE PROVIDED FOR PTS SNACK. PT DENIES ADDITIONAL REQUESTS OR COMPLAINTS. CALL LIGHT WITHIN REACH. BED RAILS UP.
--- NOTE | 2020-11-03 16:53 | NUR ---
PT HERE FOR SEPSIS RELATED TO UTI. PT UP WITH 1-2 PERSON ASSIST TO CHAIR, SHOWER AND WITH PHYSICAL AND OCCUPATIONAL THERAPY THIS SHIFT. PT TOELRTING REGULAR DIET WITH GOOD APPITITE, ENSURE PROVIDED WITH MEALS AND SNACKS. PTS STRENGTH AND MOBILITY IMPROVING THIS SHIFT. PT NOW ABLE TO AMBULATE A FEW STEPS, SHUFFELING GATE IMPROVED. PT NOW INDEPENDANT WITH EATING AND DRINKING. SHOWER THIS SHIFT. PT VOIDING QUANTITY SUFFICIENT. PT UP TO BEDSIDE COMODE X2 THIS SHIFT, VOIDS ON COMODE. BOWEL MOVEMENT NOTED THIS SHIFT. MULTIPLE SKIN WOUNDS UNCHANGED THIS SHIFT. DRESSINGS INTACT (SEE RN NOTE), NEW DRESSING APPLIED TO RIGHT ELBOW. PT USES CALL LIGHT APPROPRIATLY.
--- NOTE | 2020-11-03 17:15 | NUR ---
THIS RN TO ROOM TO CHECK ON PT. PT RESTING IN BED EATING DINNER. PT STATES SHE IS TOO TIRED TO GET UP TO CHAIR FOR DINNER. PT DECLINES TIME UP TO CHAIR. HEAD OF BED ELEVATED TO 40 DEGREES. PT ASSISTED WITH OPENING PACKAGES. PT DENIES ADDITIONAL REQUESTS OR COMPLAINTS. CALL LIGHT WITHIN REACH. BED RAILS UP.
--- NOTE | 2020-11-03 18:10 | NUR ---
PATIENT AWAKE IN BED EATING DINNER. VITALS AND I&OS CAHRTED. CALL LIGTHT AND PERSONAL ITEMS IN REACH.
--- NOTE | 2020-11-03 18:37 | NUR ---
THIS RN TO ROOM TO CHECK ON PT. MEDICAITON DUE. PT FINISHED WITH DINNER. RESTING IN BED, TALKING ON PHONE. PT DENIES PAIN AND NAUSEA. PT REPORTS SHE WOULD LIKE TO USE THE COMODE. 2 PERSON ASSIST WITH FRONT WHEEL WALKER UP TO COMODE. PT VOIDS 350ML YELLOW URINE. ASHLEY CARE DONE. FRESH DEPENDS IN PLACE. 2 PERSON ASSIST WITH FRONT WHEEL WALKER BACK TO BED. PT DEMONSTRATES USE OF I.S. RECHING 600ML. MEDICAITON GIVEN (SEE MAR). PT REPOSITIONED TO LEFT SIDE, SUPPORTED WITH PILLOWS. HEEL PROTECTORS IN PLACE. BED RAILS UP. CALL LIGHT WITHIN REACH. PT DENIES ADDITIONAL REQUESTS OR COMPLAINTS.
--- NOTE | 2020-11-03 19:27 | NUR ---
GIVEN SHIFT REPORT FROM ANEESH WILKINS. PATIENT HAS NO NEEDS AT THIS TIME. PATIENT CURRENTLY TURNED TO HER LEFT SIDE, HAS WATER, AND CALL LIGHT IS IN REACH.
--- NOTE | 2020-11-03 21:18 | NUR ---
PATIENT ROTATED UP ON BOTH HIPS WITH PILLOWS AND PILLOWS UNDER TH ARMS. WOUND ASSESSMENT: 1.ALLEVYN TO LEFT FOOT UNDER BIG TOES CDI. 2.DRY SKIN ABOVE RIGHT ANKLE WITH SMALL SCAB OPEN TO AIR. 3.ALLEVYN TO OUTTER EDGE OF RIGHT FOOT CDI. 4.2CM CIRCUMFRENTIAL BUMP/CALLUS TO BOTTOM OF RIGHT FOOT OPEN TO AIR. 5.ALLEVYN TO LATERAL EDGE OF RIGHT CALF HAS PENCIL ERASER TIP SIZE SHODOWING IN THE MIDDLE OF THE DRESSING, DRESSING IS INTACT. 6.ALLEVYN TO MEDIAL LEFT KNEE CDI. 7.ALLEVYN TO RIGHT ELBOW CDI. 8.ALLEVYN TO RIGHT SHOULDER CDI. 9.ALLEVYN TO LEFT SHOULDER CDI. 10.ALLYVEN TO CAUDAL RIGHT HIP HAS SMALL AMOUNT OF YELLOW SHADOWING, DRESSING EDGES AREW ALL INTACT AND DRESSING LEFT IN PLACE. 11.ALLEVYN TO COCCYX CDI. 12.ALLEVYN TO DISTAL RIGHT HIP HAS A SMALL AMOUNT OF YELLOW SHADOWING. EDGES OF DRESSING INTACT AND DRESSING LEFT IN PLACE. 13. BRUISES TO BOTH HANDS FROM PREVIOUS IV STARTS AND ATTEMPTS. PATIENT DENIES PAIN. WATER GLASS REFILLED. CUP OF SODA WITH ICE GIVEN PER PATIENT REQUEST. ATTENDS ARE DRY AND PATIENT WILL CALL IF NEEDING TO USE THE COMMODE. PATIENT HAS NO OTHER NEEDS AT THIS TIME AND CALL LIGHT IS IN REACH.
--- NOTE | 2020-11-03 22:57 | NUR ---
PATIENT CALLED AND WAS INCONTINENT OF URINE AND NEEDED ATTENDS CHANGED THIS RN AND DC RN CLEANED PATIENT UP, CHANGED ATTENDS, AND REPOSITIONED PATIENT TO HER LEFT SIDE. NO OTHER NEEDS AT THIS TIME. CALL LIGHT IN REACH.
--- NOTE | 2020-11-04 00:11 | NUR ---
CALL LIGHT ANSWERED, pt INCONTINENT OF URINE. ATTENDS HEAVILY SOAKED. WITH HELP FROM FRANKY MARIA, pt CHANGED AND NEW ATTENDS IN PLACE. pt REPOSITIONE DIN BED. PILLOW PLACED UNDER LEFT SIDE, RIGHT ARM, AND BLE FOR COMFORT. pt TOELRATED WELL. NO FURTHER NEEDS, CALL LIGHT IN REACH. BED IN LOW POSITION.
--- NOTE | 2020-11-04 00:37 | NUR ---
PATIENT RESTING QUIETLY IN BED WATCHING TV. PATIENT HAS NO NEEDS AT HTIS TIME. CALL LIGHT IS IN REACH.
--- NOTE | 2020-11-04 01:00 | NUR ---
PATIENT RESTING QUIETLY, EYES CLOSED, RESPIRATIONS REGULAR AND EVEN. CALL LIGHT IN REACH.
--- NOTE | 2020-11-04 02:00 | NUR ---
PATIENT REPOSITIONED TO LEFT SIDE AND ATTENDS CHANGE AND PERICARE DONE. PATIENT HAD NO OTHER NEEDS. CALL LIGHT IN REACH.
--- NOTE | 2020-11-04 03:10 | NUR ---
PATIENT REQUEST TO TURN, PATIENT REPOSITIONED TO RIGHT SIDE. NO OTHER NEEDS AT THIS TIME. CALL LIGHT IN REACH.
--- NOTE | 2020-11-04 04:55 | NUR ---
PATIENT INCONTINENT AND ATTENDS CHANGED AND PATIENT PERICARE DONE. NEW ICE WATER GIVEN. PATIENT REPOSITIONED TO LEFT SIDE. CALL LIGHT IN REACH. NO OTHER NEEDS AT THIS TIME.
--- NOTE | 2020-11-04 05:02 | NUR ---
PATIENT HAS SLEPT JUST A LITTLE TONIGHT. PATIENT HAS BEEN INCONTINENT MANY TIME AND PERICARE AND ATTENDS HAVE BEEN DONE AND CHANGED MANY TIME. PATIENT'S WOUND ASSESSMENT AND DRESSINGS REMAIN UNCHANGED. VS REMAIN STABLE. PATIENT'S VS REMAIN STABLE. PATIENT HAS GOOD ORAL FLUID INTAKE. PATIENT CALLS APPROPRIATELY. CALL LIGHT IN REACH.
--- NOTE | 2020-11-04 07:00 | NUR ---
PATIENT IS UP TO THE BEDSIDE ARM CHAIR AFTER 2PA TO BEDSIDE COMMODE FOR LARGE BM AND ATTENDS CHANGED AFTER LARGE INCONTINENCE OF URINE. AM MEDS GIVEN. REPORT GIVEN TO ANEESH WILKINS. CALL LIGHT IN REACH AND WATER REFILLED AND CUP OF SODA POP GIVEN.
--- NOTE | 2020-11-04 07:13 | NUR ---
REPORT RECEIVED FROM FRANKY BAZZI. PT UP TO CHAIR, JUST FINISHED USING THE COMODE. PT DENIES PAIN AND NAUSEA. PT POSITIONED WITH PILLOWS FOR COMFORT. CALL LIGHT IN PTS LEFT HAND. PT DENIES ADDIITONAL REQUESTS OR COMPLAINTS.
--- NOTE | 2020-11-04 07:19 | NUR ---
MORNING ASSESSMENT DUE. PT UP TO CHAIR. PT DENIES PAIN AND NAUSEA. COMPLETE WOUND ASSESMENT DONE (SEE RN NOTE). IV DC'D YESTERDAY BY THIS RN (SEE PREVIOUS CHARTING). PTS GENERALIZED WEAKNESS CONTINUES, IMPROVING. PT DOING PHYSICAL THERAPY EXERCISES WHILE UP TO CHAIR. PT ABLE TO VERBALIZES AND DEMONSTRATE UNDERSTANDING OF EXERCISES. BASELINE TREMORS CONTINUE, IMPROVING. MORE SEVERE WHEN PT IS TRYING TO DO A FOCUSED ACTIVITY SUCH USE OF I.S. PT ABLE TO STAND WITH ONE PERSON ASIST AND FRONT WHEEL WALKER. PT MORE STEADY ON FEET THIS MORNING. PT DEMONSTRATES USE OF I.S. REACHING 1000ML. GOALS SET WITH PT INCLUDING SHOWER, PHYSICAL THERAPY, OT, AND USE OF BEDSIDE COMOD INSTEAD OF DEPENDS TODAY. PT CONTINUES RESTING IN CHAIR. SUPPORTED WITH PILLOWS. PT WORKING ON PHYSICAL THERAPY EXERCISES. PT DENIES ADDITIONAL REQUESTS OR COMPLAINTS. CALL LIGHT WITHIN REACH.
--- NOTE | 2020-11-04 07:19 | NUR ---
WOUND ASSESSMENT: 1. ALLEVYN TO LATERAL RIGHT CLAF INTACT WITH 2CM X1 CM YELLOW SHADOWING NOTED. LEFT IN PLACE. 2. ALLEVYN TO LATERAL RIGHT FOOT C/D/I. 3. 0.5X0.5CM SCAB NOTED ON MEDIAL RIGHT ANKLE SURROUNDED BY 3CM X1CM AREA OF DRIED SKIN, DECREASED REDNESS NOTED TO THIS AREA. 4. 1CM X 1CM LUMP/CALLEOUS NOTED TO LATERAL BOTTOM OF RIGHT FOOT. 5. ALLEVYN TO LEFT BIG TOE LOOSE. REMOVED, 1CM BY 1.5CM AREA OF REDDNED SKIN NOTED UNDER ALLEVYN, IMPROVING. NEW ALLEVYN APPLIED. 6. ALLEVYN TO LEFT KNEE WNL, C/D/I. LEFT IN PLACE. 7. ALLEVYN TO LEFT SHOULDER C/D/I, LEFT IN PLACE. 8. ALLEVYN TO RIGHT SHOULDER C/D/I, LEFT IN PLACE. 9. ALLEVYN TO RIGHT ELBOW LOOSE AND PEELING OFF. 1CM BY 1.5CM STAGE 2 PRESSURE ULCER NOTED. JACKELYN COLLAGEN APPLIED WITH NEW ALLEVYN IN PLACE. EDGES WELL INTACT. 10. BRUISES NOTED TO BILATERAL HANDS. PT STATES FROM PREVIOUS IV STARTES. EDGES YELLOWING, IMPROVING, 11. 7CM X1 CM BRUISE NOTED TO INNER RIGHT FORARM. PT REPORTS "FROM THE LABS." 12. ALLEVYN TO COCCYX C/D/I, LEFT IN PLACE 13. ALLEVYN TO UPPER RIGHT HIP INTACT WITH 7CM X 2 CM YELLOW SHADOWING NOTED. 14. ALLEVYN TO LOWER RIGHT HIP INTACT WITH 6CM BY 1 CM YELLOW SHADOWING NOTED. 15. 1CM X 1CM REDDENED AREA NOTED TO RIGHT SCAPULA BONY PROMINANCE. 16. 3CM BY 2 CM BRUISE NOTED TO LEFT FORARM. 12.
--- NOTE | 2020-11-04 09:42 | NUR ---
THIS RN TO ROOM TO CHECK ON PT. PT UP TO CHAIR. PT REPORTS SHE JUST FINISHED WORKIGN WITH PHYSICAL THERAPY AND WAS ABLE TO WALK TO THE RESTROOM AND STAND AT THE SINK AGAIN. PT PROUD OF HER ACCOMPLISMENTS AND STATES "I'M GETTING SOME STRENGTH BACK." PT REMAINS UP TO CHAIR. PT SUPPORTED WITH PILLOWS. DENIES PAIN AND NAUSEA. NO ADDITIONAL REQUESTS OR COMPLAINTS. CALL LIGHT WITHIN REACH.
--- NOTE | 2020-11-04 10:00 | NUR ---
PATIENT IN CHAIR WATCHING TV. AM CARE DONE. WARM WASH CLOTH GIVEN. VITALS AND I&O'S CHARTED. CALL LIGHT IN REACH. NO FURTHER NEEDS AT THIS TIME.
--- NOTE | 2020-11-04 10:55 | NUR ---
MEDICATION DUE. THIS RN TO ROOM. PT UP TO CHAIR. PT REPORTS SHE HAS BEEN WORKING ON HER PHYSICAL THERAPY EXERCISES. PT DEMONSTRATES USE OF I.S. REACHIGN 750ML. MEDICATION GIVEN (SEE MAR). LUNCH ORDER PLACED. PT DENIES ADDITIONAL REQUESTS OR COMPLAINTS. CALL LIGHT WITHIN REACH.
--- NOTE | 2020-11-04 12:10 | NUR ---
THIS RN TO ROOM TO CHECK ON PT. PT REQUESTS ASSISTANCE TO OPEN CONDAMENT PACKAGES. PT WAS ABLE TO REMOVE COVERS TO FOOD CONTAINERS ON HER OWN AND TAKE WRAPING OFF OF HER ENSURE BOTTLE. ENSURE BOTTLE AND CONDAMENT PACKAGES OPENED FOR PT. PT DENIES PAIN AND NAUSEA. PT DENIES ADDITIONAL REQUESTS OR COMPLAINTS. CALL LIGHT WITHIN REACH.
--- NOTE | 2020-11-04 13:10 | NUR ---
PATIENT UP TO BATHROOM AND THEN TO BED FROM CHAIR, 1PA FWW. VITALS AND I&O'S CHARTED. CALL LIGHT IN REACH. NO FURTHER NEEDS AT THIS TIME.
--- NOTE | 2020-11-04 13:31 | NUR ---
THIS RN TO ROOM TO CHECK ON PT. PT RESTING IN BED WITH EYES CLOSED, HEAD OF BED ELEVATED TO 25 DEGREES, RESPIRATIONS EVEN AND UNLABORED. BED RAILS UP. CALL LIGHT WITHIN REACH. PT ALLOWED TO REST.
--- NOTE | 2020-11-04 13:39 | NUR ---
AFTERNOON ASSESSMENT DUE. PT RESTING IN BED WITH HEAD OF BED ELEVATED TO 25 DEGREES. PT AWAKENS TO MOVEMENT IN ROOM. PT DENIES PAIN AND NAUSEA. PT STATES SHE HAS BEEN GETTING UP TO THE RESTROOM TO VOID TODAY AND CONTINUES TO FEEL STRONGER. ASSESSMENT DONE: NO CHANGES TO SKIN WOUNDS OR DRESSINGS FROM THIS MORNING. ALLEVYN DRESSINGS C/D/I WITH EXCEPTIONS OF UNCHAGED SHADOWING PREVIOUSLY NOTED. DRY SKIN NOTED TO LOWER EXTREMITIES. PT DECLINES LOTION AT THIS TIME. PT CONTINUES TO HAVE TREMORS PER BASELINE INCREASING WITH FINE MOTOR ACTIVIES. PT DEMONSTRATES USE OF I.S. REACHIGN 750. 7-UP AND ENSURE PROVIDED FOR SNACK. ICE WATER REFILLED. NO ADDITIONAL REQUESTS OR COMPLAINTS. CALL LIGHT WITHIN REACH. BED RAILS UP.
--- NOTE | 2020-11-04 13:45 | NUR ---
Pt denies c/o. No OHP insurance enter as yet. Called and spoke with pt's son. He has taken FMLA and will be off for around 20 days. He states he will stay with his mom. Discussed education for cg and medications and he would like to have. Will discuss with nurse and pharmacy and ask them to set up education.
--- NOTE | 2020-11-04 14:49 | NUR ---
MEDICATION DUE. PT RESTING IN BED WITH HEAD OF BED ELEVATED TO 30 DEGREES. PT REPORTS SHE HAS BEEN SLEEPING ON AND OFF. MEDICATION GIVEN. PT REPOSTIONED IN BED TO LEFT SIDE. PILLOWS USED FOR SUPPORT. PT DEMONSTRATES USE OF I.S. REACH 750ML. DINNER ORDER PLACED. NO ADDITIONAL REQUESTS OR COMPLAINTS. CALL LIGHT WITHIN REACH. BED RAILS UP.
--- NOTE | 2020-11-04 15:22 | NUR ---
PT HERE FOR SEPSIS RELATED TO A UTI. PT UP WITH 1 PERSON ASSIST AND FRONT WHEEL WALKER THIS SHIFT TO RESTROOM, CHAIR, AND WITH PHYSICAL THERAPY AND OCCUPATIONAL THERAPY. PT TOLERATING REGULAR DIET WITH GOOD APPTITIE, ENSURES PROVIDED WITH MEALS AND FOR SNACKS. STRENGTH IMPROVING. PT ENCORUAGED TO GET UP TO VOID IN RESTROOM RATHER THAN VOIDING IN DEPENDS. PT UP TO CHAIR FOR ALL MEALS. PERSONAL BELONGS AT EDGE OF BED, ENCOURAGING PT TO REACH FOR ITEMS. NO SHYLA OR NAUSEA THIS SHIFT. WOUNDS UNCHANGED THROUGHOUT SHIFT (SEE WOUND ASSESSMENT NOTE). PT USES CALL LIGHT APPROPRAITLY. PT VOIDING QUANTITY SUFFICIENT.
--- NOTE | 2020-11-04 15:24 | NUR ---
WOUND CONSULTATION NURSE, DHARMESH GEIGER CALLED TO ASK IF SHE WILL COME TODAY OR SUNDAY FOR 2ND WOUND ASSESSMENT. STATES SHE WILL CALL BACK.
--- NOTE | 2020-11-04 15:40 | NUR ---
SPOKE WITH Rosaura CHRISTOPHER RN/WOUND NURSE. STATES SHE WILL WAIT TO ASSESS WOUNDS UNLESS DRESSINGS ARE DIRTY. Ramón ANAYA RN, NOTIFIED. STATES DRESSINGS ARE CLEAN AT THIS TIME.
--- NOTE | 2020-11-04 15:41 | NUR ---
Spent time with patient and provided therapeutic and emotional support. Patient reported stressors as financial and legal troubles. Patient stated she juventino with stressors day by day with family support. Pt reports she understand her functional status, impairment, and knows her own abilities. Pt showed concerns toward past injuries and current tremors. She stated she wished there was a Neurologist in town to help control her tremors. Patient stated her tremors from the Parkinsons limits her ADL's and impacts her motivation. Before leaving room, patients call light was in reach, she stated she was comfortable, and demonstrated that she understood how to use call light. -Marybel Hutchinson, Student Nurse
--- NOTE | 2020-11-04 16:21 | NUR ---
THIS RN TO ROOM TO CHECK ON PT. PT UP IN ROOM AMBULATING WITH MELLY FROM PHYSICAL THERAPY, FWW IN USE. PT MOVING WELL IN ROOM. PT REPORTS SHE WILL BE GETTING UP TO THE RESTROOM AND THEN TO THE CHAIR FOR DINNER. PT DENIES PAIN AND NAUSEA. PT REPORTS SHE HAS NO ADDITIONAL REQUESTS OR COMPLAINTS AT THIS TIME.
--- NOTE | 2020-11-04 16:30 | NUR ---
Spoke with Marybel from medical floor. She will set up education for pts son. Called and confirmed with Radhika Rosado and she states she has a packet. Called Darci and asked when he would like to come in for education. He would prefer 1000 am tomorrow. Discussed they will provide education for personal care, ambulation/transfers, and medications. Also ecouraged son to tell the nurses, PT, Pharmacy if there is any other education he needs and they will assist him.
--- NOTE | 2020-11-04 16:36 | NUR ---
PT CALL LIGHT ON. PT FINISHED WITH USING RESTROOM. SOLOMON PICKARD THERLISA PREVIOUSLY MENTIONED THAT PT WAS USING RESTROOM AND WOULD CALL WHEN READY. PT PERFORMS HER OWN ASHLEY CARE. FRESH DEPENDS IN PLACE. 1 PERSON ASSIST WITH FRONT WHEEL WALKER UP TO CHAIR FOR DINNER. PT DEMONSTRATES USE OF I.S. REACHING 1000ML. PT TALKING TO HER SON ON PHONE. NO ADDITIONAL REQUESTS OR COMPLAINTS. PT DECLINES USE OF HEEL PROTECTORS AND PILLOWS ON SIDES OF ARMS STATING "I WANT TO WORK ON MY EXERCISES." CALL LIGHT WITHIN REACH.
--- NOTE | 2020-11-04 17:24 | NUR ---
THIS RN TO ROOM TO CHECK ON PT. PT UP TO CHAIR EATING DINNER. PT ABLE TO PREPAR HER OWN DINNER. PT FEEDING SELF WITH OUT DIFFICULTY. PT DENIES PAIN AND NAUSEA. NO ADDITIONAL REQUESTS OR COMPLAINTS. CALL LIGHT WITHIN REACH.
--- NOTE | 2020-11-04 18:02 | NUR ---
Did vital signs. Encouraged incentive spirometer. Pt sitting in chair, with elevated legs. Patient stated she was comfortable. Call light within reach.
--- NOTE | 2020-11-04 18:09 | NUR ---
STUDENT NURSE IN TO DO VITALS AND I&O'S. PATIENT SITTING IN CHAIR. CALL LIGHT IN REACH.
--- NOTE | 2020-11-04 18:12 | NUR ---
PT CALL LIGHT ON. PT REQUESTS ASSISTANCE UP TO RESTROOM AND TO BRUSH HER TEETH. 1 PERSON ASSIST WITH FRONT WHEEL WALKER UP TO RESTROOM. PT VOIDS WITHOUT ISSUE. ASHLEY CARE DONE BY PT. DEPENDS IN PLACE. PT UP TO STAND BY SINK AND BRUSH TEETH. 1 PERSON ASSIST WITH FRONT WHEEL WALKER BACK TO BED. 2CM X 2CM RAW SKIN NOTED TO THE INNER RONIT PROMINANCE OF RIGHT ELBOW. ALLEVYN APPLIED. PT POSITIONED IN BED WITH PILLOWS FOR SUPPORT. HEEL PROTECTORS IN PLACE. NO ADDTIIONAL REQUESTS OR COMPLAINTS. CALL LIGHT WITHIN REACH. BED RAILS UP.
--- NOTE | 2020-11-04 18:41 | NUR ---
MEDICATION DUE. PT RESTING IN BED WITH EYES CLOSED, RESPIRATIONS EVEN AND UNALBORED. PT AWAKENS TO MOVEMENT IN THE ROOM. MEDICATION GIVEN. PT DENIES ADDITIONAL REQUESTS OR COMPLAINTS AT THIS TIME. CALL LIGHT WITHIH REACH. BED RAILS UP.
--- NOTE | 2020-11-04 18:50 | NUR ---
BED ALARM ON. PT USING TRAY TABLE A WALKER AND TRYING TO LEAVE ROOM. PT DISORIENTED TO PLACE AND EVENTS. PT REORIENTED AND GUIDED BACK TO BED. PT POSITIONED IN BED FOR COMFORT. PT VERBALIZES UNDERSTANDING OF PLACE AND PLAN OF CARE. BED ALARM ON. CURTAIN OPEN AND PT EASILY VISIBLE FROM NURSES STATION.
--- NOTE | 2020-11-04 19:00 | NUR ---
REPORT RECEIVED FROM ANEESH WILKINS. PT RESTING IN BED, EYES CLOSED AND BREATHING EVENLY, UNLABORED. HEEL PROTECTORS IN PLACE. UPDATED BY ANEESH ON ALL WOUNDS. WILL CONTINUE PLAN OF CARE.
--- NOTE | 2020-11-04 20:16 | NUR ---
IN TO ADJUST PT PILLOWS, NO FURTHER NEEDS AT THIS TIME, FAMILY MEMBER IN RM AT THIS TIME
--- NOTE | 2020-11-04 20:28 | NUR ---
IN TO GET PT VITALS, NO FURTHER NEEDS
--- NOTE | 2020-11-04 21:00 | NUR ---
PT CALLED FOR HELP TO RESTROOM. 1PA W/FFW TO RESTROOM AND BACK TO BED. PT HAS PILLOWS UNDER BOTH ELBOWS, HEEL PROTECTORS AND PILLOW UNDER L SIDE. SHE DENIES FURTHER NEEDS AT THIS TIME. CALL LIGHT IS IN HAND AND SHE HAS A VISITOR IN THE ROOM WITH HER.
--- NOTE | 2020-11-04 21:30 | NUR ---
IN TO GET VITALS, TOOK PT EMPTY SODA CAN, NO FURTHER NEEDS AT THIS TIME, FAMILY MEMBER HAS LEFT FOR THE EVENING
--- NOTE | 2020-11-04 21:40 | NUR ---
In room for assessment and medication administered. Pt repositioned in bed with help of FUEL EFFICIENT AIRCRAFT DESIGNER, positioned with pillows. Pt reports "feeling better" today, her appetite has increased, and states also "moving better." Wounds assessed--see next note. Water refreshed, pt states no further needs. Call light in reach.
--- NOTE | 2020-11-04 21:50 | NUR ---
IN TO ASST RN WITH TURNING PT, NO FURTHER NEEDS
--- NOTE | 2020-11-04 23:05 | NUR ---
WOUND ASSESSMENT: 1. ALLEVYN TO LATERAL RIGHT CALF INTACT WITH [id number] YELLOW SHADOWING NOTED. LEFT IN PLACE. 2. ALLEVYN TO LATERAL RIGHT FOOT C/D/I. 3. SCAB TO MEDIAL R ANKLE, NO REDNESS NOTED. 4. 1 CM X 1 CM HARD CALLUS TO BOTTOM LATERAL R FOOT. 5. ALLEVYN TO L BIG TOE IN PLACE, C/D/I. 6. ALLEVYN TO LEFT KNEE C/D/I. 7. ALLEVYN TO LEFT SHOULDER, C/D/I. 8. ALLEVYN TO RIGHT SHOULDER, C/D/I. 9. ALLEVYN TO RIGHT ELBOW C/D/I. 10. BRUISES TO BILATERAL HANDS, SCATTERED. PT ATTRIBUTES TO IV/LAB. 11. 7 CM X 1 CM BRUISE TO INNER RIGHT FOREARM, YELLOWING. 12. ALLEVYN TO COCCYX, C/D/I. 13. ALLEVYN TO UPPER RIGHT HIP INTACT WITH 7x1 CM YELLOW SHADOWING. 14. ALLEVYN TO LOWER RIGHT HIP INTACT WITH 6x1 CM YELLOW SHADOWING. 15. 1 CM X 1 CM REDDENED AREA TO RIGHT SCAPULA. 16. 3 CM X 2 CM BRUISE TO LEFT FOREARM. 17. ALLEVYN TO INNER BONY PROMINANCE OF RIGHT ELBOW. No wound care needed at this time, assessed and all C/D/I.
--- NOTE | 2020-11-04 23:55 | NUR ---
IN TO CHANGE PTs BRIEF AND BLADDER PAD, READJUSTED PTs PILLOWS, NO FURTHER NEEDS AT THIS TIME
--- NOTE | 2020-11-05 01:29 | NUR ---
Rounded on patient, resting in bed with eyes closed. Positioned with pillows behind back and under hips, elbow, between legs. No apparent needs, call light in reach.
--- NOTE | 2020-11-05 01:57 | NUR ---
Call light answered, pt states incontinent in depends and needs changed. Pt encouraged to get up and use BSC, pt refuses at this time. Repositioned in bed with pillows. States no further needs and would like to sleep. Call light in reach.
--- NOTE | 2020-11-05 04:16 | NUR ---
IN TO ASST PT UP TO THE BSC, 2PA PIVOT FWW, ALOWING PT PRIVACY AT THIS TIME, PT AGREES TO CALL
--- NOTE | 2020-11-05 06:54 | NUR ---
Scheduled medications administered. Pt requests depends changed, incontinent. Pt states did not have time to get to BR, but has every intention of doing so today when possible. Repositioned in bed with pillows. Pt refuses heel protectors at this time. No further requests. Call light in reach.
--- NOTE | 2020-11-05 08:00 | NUR ---
REPORT RECEIVED FROM NIGHT RN AND PT. CARE RESUMED. PT. ALERT AND ORIENTED TO ALL BUT DATE. FLAT AFFECT AND SOMEWHAT WITHDRAWN. PT. STATES SHE HAS OCCASIONAL PAIN THAT IS TOLERABLE FROM TOES "TIGHTENING" DUE TO PARKINSON'S. LUNGS CLEAR THROUGHOUT AND BOWEL TONES ACTIVE. PT. AMBULATED WITH FWW AND 1P. ASSIST TO TOILET. PT. TOLERATED WELL AND MOVES SLOWLY. VOIDED CLEAR YELLOW URINE. PT. UP TO THE CHAIR. WILL ASSESS ALL WOUNDS THIS MORNING. DISCUSSED POC AND WILL SHOWER THIS MORNING AFTER SON VISITS. PT. LEFT RESTING IN CHAIR WITH CALL LIGHT IN REACH.
--- NOTE | 2020-11-05 09:30 | NUR ---
SPOKE WITH PATIENT IN ROOM. SHE IS UP IN CHAIR. PATIENT ORIENTED. DISCUSSED WITH PATIENT AGAIN THE PLAN FOR HER SON TO COME IN FOR EDUCATION AND FOR HER TO CONTINUE WORK WITH THERAPIES. ALSO THAT AN ORDER FOR WOUND CARE WILL BE SENT TO OUTPATIENT CLINIC FOR HER WOUND CARE. SHE IS IN AGREEMENT WITH ALL THIS. SHE ASKED ABOUT COST, I EXPLAINED THAT THEY ARE STILL WORKING ON HER OHP COVERAGE CASE AND I HAVE NOT HEARD ANYTHING NEW YET. I EXPLAINED IF FOR SOME REASON SHE DOESN'T QUALIFIY, THERE IS A [facility] PROGRAM AT THE HOSPITAL AND SHE CAN REQUEST HELP WITH THE COSTS. SHE IS GRATEFUL FOR ALL. WE DISCUSSED THAT SHE MAY NEED COMMODE AND OT HAD COME TO MY OFFICE STATING SHE NEEDS A SHOWER CHAIR. I DISCUSSED I CAN SEND THIS TO [facility], BUT SHE STATES HER [id number] IS ALREADY GOING DOWN THERE TO GET THE THINGS THEY NEED. I GAVE HER THE DISCHARGE PLANNING CONTACT CARD SO SHE CAN CALL IF SHE NEEDS FURTHER HELP AFTER SHE GETS HOME.
--- NOTE | 2020-11-05 09:55 | NUR ---
Checked in on pt. She is sitting up in her chair, watching tv. Pt stated she is compfortable and does not need anything at the moment. Pt recieved soda per request. Patient reported she is waiting on her sons arrival for vistation. Call light is in reach and states she understands to call if she needs anything.
--- NOTE | 2020-11-05 10:20 | NUR ---
SON IN THE ROOM WITH PATIENT. BOTH EDUCATED ON ADL AND SELF-CARE ASSISTANCE AND ALL QUESTIONS ANSWERED. PRINTED MATERIALS GIVEN. SON STATED HE PLANS TO GET A SHOWER CHAIR FOR THE HOME. PT. LEFT RESTING WITH CALL LIGHT IN REACH.
--- NOTE | 2020-11-05 10:30 | NUR ---
OT IS IN ROOM WITH SON AND PATIENT.
--- NOTE | 2020-11-05 11:15 | NUR ---
RECEIVED CALL FROM ZACH HUTCHINSON. SHE WANTED TO KNOW IF PATIENT IS STILL IN THE HOSPITAL. SHE WANTED TO TALK WITH HER ABOUT POSSIBLE MEDICAID COVERAGE. I TRANSFERRED THE CALL TO THE ROOM.
--- NOTE | 2020-11-05 11:16 | NUR ---
Briefly discussed shower with pt. Pt stated she wanted a shower today after visitors and OT left.
--- NOTE | 2020-11-05 11:45 | NUR ---
OT CAME AND REPORTED THE SON DID A GOOD JOB WITH EDUCATION FOR CARE. THEY DO HAVE STAIRS IN THE HOME AND PATIENT HAS NOT WORKED ON THIS YET. THEY SUGGEST SHE CONTINUE THERAPY TODAY AND PT CAN WORK ON STAIRS TOMORROW BEFORE DISCHARGE. I CALLED YOSELYN IN OUR FINIANCAL OFFICE AND SHE STATES SHE CHECKED THIS MORNING ON OHP COVERAGE, BUT IT IS STILL PENDING.
--- NOTE | 2020-11-05 11:53 | NUR ---
SPOKE WITH WOUND CARE NURSE DHARMESH CHRISTOPHER ON PHONE. SHE STATES SHE SAW PATIENT AND CAN BE CALLED IN IF DRESSINGS GET SOILED OR NEED CHANGING. SHE STATES SHE REPORTED THIS TO NURSES IN ROOM YESTERDAY. WE DISCUSSED PATIENT MAY BE DISCHARGED OVER WEEKEND WITH ORDERS FOR WOUND CARE TO CONTINUE AT THEIR CLINIC IN DAY SURGERY. SHE STATES UNDERSTANDING. STAFF UPDATED.
--- NOTE | 2020-11-05 14:30 | NUR ---
PT. USED CALL LIGHT APPROPRIATELY TO REQUEST ASSISTANCE FROM BATHROOM. AMBULATED WITH FWW AND STANDBY ASSIST. TOLERATED WELL. ALLEVYN DRESSING WITH COLLAGEN REPLACED ON RT. ELBOW AND LEFT FOOT DUE TO PEELING OFF. PT. DENIES PAIN AND NAUSEA. LUNGS CLEAR THROUGHOUT. PT. REPORTS NUMBNESS AND TINGLING IN BOTH FEET THAT IS CHRONIC. PT. DENIES FURTHER NEED AND LEFT RESTING WITH CALL LIGHT IN REACH.
--- NOTE | 2020-11-05 14:52 | NUR ---
PATIENT IN BED RESTING. PATIENT WORKED WITH PT AND IS TIRED SO SHE WANTS TO SHOWER LATER WHEN SHE HAS MORE ENERGY. VITALS AND I&O'S CHARTED. CALL LIGHT IN REACH. NO FURTHER NEEDS AT THIS TIME.
--- NOTE | 2020-11-05 15:32 | NUR ---
WOUND ASSESSMENT COMPLETED. R CALF- ALLEVYN WITH YELLOW SHADOWING R ANKLE- ALLEVYN CDI R LATERAL ELBOW- ALLEVYN CDI R MEDIAL CALF- ALLEVYN CDI L SHOULDER- ALLEVYN CDI L HEEL- WOUND IS 1CM OPENED BLISTER THAT IS DRY AND RED, ALLEVYN REPLACED R SHOULDER- ALLEVYN CDI R HIP #1- ALLEVYN CDI R HIP #2- ALLEVYN CDI MID LOWER BACK- ALLEVYN CDI R ELBOW- WOUND IS 4CM, DARK RED AND DRY, ALLEVYN AND COLLAGEN REPLACED DUE TO PEELING SCATTERED BRUISES
--- NOTE | 2020-11-05 17:24 | NUR ---
PT. HERE FOR SEPSIS RELATED TO UTI. URINE IS QS, CLEAR, YELLOW. AMBULATES WITH FWW AND 1 PERSON ASSIST. VERY WEAK AND TREMULOUS FROM PARKINSON'S. UP TO THE CHAIR FOR SEVERAL HOURS TODAY AND AMBULATED WITH P.T. PT. USES BATHROOM TOILET AND HAD SHOWER TODAY. APPETITE IMPROVING AND SHOULD HAVE ENSURE WITH MEALS. USES CALL LIGHT APPROPRIATELY. ORDERS FOR WOUND CARE. WOUND ASSESSMENTS ARE IN NOTES DUE TO NUMBER. ALLEVYN WITH COLLAGEN CHANGED ON RT. ELBOW AND LEFT FOOT.
--- NOTE | 2020-11-05 19:00 | NUR ---
Report received from Franchesca WILKINS. Pt resting in bed, talking on phone. Scheduled medication administered. No needs at this time, call light in reach.
--- NOTE | 2020-11-05 20:04 | NUR ---
CONTROL CHEMIST ROUNDING NOTE. PT RESTING IN BED. UTILIZES CALL LIGHT TO HAVE ATTENDS CHANGED. CADDY AND CANDY SEPARATOR ENROBING TO ROOM TO CHANGE ATTENDS. PT ABLE TO LIFT BOTTOM OFF OF BED WITH ASSISTANCE OF OVERHEAD TRAPEZE. ALLEVYN FOAM DISPLACED FROM R ELBOW, COLLAGEN AND ALLEVYN REPLACED TO SITE BY CANDY SEPARATOR ENROBING. PT TOLERATED WELL. PRIMARY RN AT BEDSIDE FOR MED ADMINISTRATION CANDY SEPARATOR ENROBING EXITS. WHITE BOARD UPDATED. CALL LIGHT IN REACH.
--- NOTE | 2020-11-05 20:10 | NUR ---
Scheduled medications administered, vitals and I/O's complete with SERGING MACHINE OPERATOR assist. Pt briefs changed per hvac/r instructor and SERGING MACHINE OPERATOR. Skin assessed, allevyn to R elbow changed. Other allevyns C/D/I. Pt in good spirits, states had good day working with PT, states appetite improved. Repositioned in bed with pillows. Call light in reach, no further needs.
--- NOTE | 2020-11-05 21:20 | NUR ---
IN TO CHANGE PT ATTENDS, ADJUSTED PTs PILLOWS AND BED, BOOSTED WITH RNs HELP, NO FURTHER NEEDS FROM ME, RN IN TO FINISH OTHER CARE
--- NOTE | 2020-11-05 21:27 | NUR ---
Assisted RUBBER MIXER with boost up in bed. Pt requests PRN tylenol for 3/10 cramping pain in toes and ankles. Heel protectors used, cool washcloth on toes per pt request. Soda and water provided. Allevyn to R elbow reinforced with coban as continually comes off with movement of arm. Pt states no further requests, call light in reach.
--- NOTE | 2020-11-05 23:45 | NUR ---
Call light answered, pt states incontinent, brief changed. Repositioned in bed, hips floated with pillows, cold washcloths applied to feet per request. Call light in reach.
--- NOTE | 2020-11-06 00:41 | NUR ---
PT UTILIZES CALL LIGHT, REQUESTS TO BE READJUSTED IN BED. PT BOOSTED UP, REPOSITION TO FLOAT ON PILLOWS. LEGS REPOSITIONED. PT DENIES FURTHER NEEDS. CALL LIGHT IN REACH.
--- NOTE | 2020-11-06 02:15 | NUR ---
PT UTILIZES CALL LIGHT, REQUESTS TO USE THE COMMODE. PT ASSISTED UP TO COMMODE AND BACK TO BED WITH 2 PA. PT REPORTS FEELING VERY WEAK, NEEDS MAX ASSIST TO TRANSFER. PT HAD XL BM. REPOSITIONED WITH PILLOWS. PT DENIES FURTHER NEEDS AT THIS TIEM. CALL LIGHT IN REACH.
--- NOTE | 2020-11-06 05:55 | NUR ---
Call light answered, pt requests briefs changed, incontinent x2. Pt reports having trouble with bladder control at night. Pt does state slept well. Repositioned in bed with pillows under hips, fresh water and 7up given, scheduled medications administered. Pt used I.S. independently without cueing. Pt states no further needs, call light in reach.
--- NOTE | 2020-11-06 07:50 | NUR ---
this rn recieved report from carmencita mayers. pt appears to be resting at this time with respirations noted
--- NOTE | 2020-11-06 08:10 | NUR ---
this rn in pts room to check on pt. appears to be sitting up in bed and is eating breakfast. pt states that she needs nothing else at this time.
--- NOTE | 2020-11-06 09:55 | NUR ---
THIS RN IN PTS ROOM TO CHECK ON PT. PT STATED THAT SHE FELT LIKE SHE NEEDED TO BE CHANGED AND WANTED TO GET UP TO THE RESTROOM. THIS RN ASSISTED PT TO THE RESTROOM WITH 1P MINIMAL ASSIST. THIS RN PROVIDED PT WITH PERICARE AND CHANGED DEPENDES DUE TO SATURATION. PT THEN ASKED IF SHE COULD WALK IN THE ROOM A BIT AND THEN GET UP TO THE CHAIR. THIS RN ABLE TO SBA PT AROUND ROOM. PT VERY CAREFUL ABOUT HER MOVEMENTS, STATES THAT SHE HAS BEEN LISTENING TO PHYSICAL THERAPIES GUIDANCE. PTS WOUNDS ARE COVERED AT THIS TIME. THE ALLEVEN ON PTS RIGHT CALF HAS SOME YELLOW SHADOWING THAT WAS NOTED ON HUMAN RESOURCES OPERATIONS MANAGER AND ON THE RIGHT HIP DRESSING THERE IS ALSO SOME YELLOW SHADOWING NOTED ON THE ALLEVEN, BOTH DRESSINGS ARE STILL INTACT AT THIS TIME. SKIN OTHERWISE LOOKS GOOD. PT UP TO CHAIR WITH PILLOWS SUPPORTING BONY PROMINANCES. CALL LIGHT WITHIN REACH
--- NOTE | 2020-11-06 16:45 | NUR ---
THIS RN IN PTS ROOM TO INSPECT ALL WOUNDS AT THIS TIME. PER DHARMESH SOLUTION PROFESSIONAL CHART- THIS RN TO NOTE ASSESSMENT ON EACH WOUND: #1- RIGHT SHOULDER- ALLEVEN C/D/I- LAST CHANGED 11/02 #2- RIGHT LATERAL ELEBOW- ALLEVEN C/D/I- LAST CHANGED 11/06- THIS RN CHANGED PTS DRESSING DUE TO DRESSING COMING OFF DUE TO SHOWER. #3- RIGHT SUPERIOR HIP- ALLEVEN C/D/I- LAST 11/06- THIS RN CHANGED DRESSING DUE TO SATURATION OF ALLEVEN FROM SHOWER #4- RIGHT INFERIOR HIP- ALLEVEN C/D/I -LAST CHANGED 11/02 #5- RIGHT LAERAL CALF- ALLEVEN C/D/I- CHANGED 11/06- THIS RN CHANGED DRESSING DUE TO EXTRA SHADOWING NOTED ON ALLEVEN #6- RIGHT LATERAL ANKLE- ALLEVEN C/D/I- LAST CHANGED 11/02 #7- LEFT SHOULDER- ALLEVEN C/D/I -LAST CHANGED 11/02 #8- LEFT MEDIAL FOOT- ALLEVEN C/D/I- LAST CHANGED 11/05 THE LEFT KNEE HAS A REDDENED AREA- LAST CHANGED 11/02 THE MID LOWER BACK IS A REDDENED AREA- ALLEVEN DRESSING LAST CHANGED 11/02
--- NOTE | 2020-11-06 19:05 | NUR ---
Report received from Lori WILKINS. Pt resting in bed, positioned with pillows. States no needs at this time. Call light in reach.
--- NOTE | 2020-11-06 20:44 | NUR ---
patient called nutrition consultant system to request an attends change. talib zhang assisted this senior quality technician with change. patient was able to pharmacy picking tech hips using trapeeze. patient denies any futher needs at this time. bed lowered. call light in hand. lights turned down per patient request.
--- NOTE | 2020-11-06 21:15 | NUR ---
Scheduled medications administered. Pt repositioned in bed with help of SIGN BOARD ERECTOR. Pt reports earlier PRN tylenol being effective. Fresh water and soda provided. All allevyns C/D/I, see further wound assessment in nurse notes. Pt resting, states comfortable, no needs at this time.
--- NOTE | 2020-11-06 22:18 | NUR ---
WOUND ASSESSMENT BY RN #1. RIGHT SHOULDER- ALLEVYN C/D/I- LAST CHANGED 11/02 #2. RIGHT LATERAL ELEBOW- ALLEVYN C/D/I- LAST CHANGED 11/06 #3. RIGHT SUPERIOR HIP- ALLEVYN C/D/I- LAST CHANGED 11/06 #4. RIGHT INFERIOR HIP- ALLEVYN C/D/I -LAST CHANGED 11/02 #5. RIGHT LAERAL CALF- ALLEVYN C/D/I- CHANGED 11/06 #6. RIGHT LATERAL ANKLE- ALLEVYN C/D/I- LAST CHANGED 11/02 #7. LEFT SHOULDER- ALLEVYN C/D/I -LAST CHANGED 11/02 #8. LEFT MEDIAL FOOT- ALLEVYN C/D/I- LAST CHANGED 11/05 -LEFT KNEE, REDDENED AREA- ALLEVYN LAST CHANGED 11/02 -MID LOWER BACK IS A REDDENED AREA- ALLEVYN DRESSING LAST CHANGED 11/02
--- NOTE | 2020-11-06 23:44 | NUR ---
NIHARIKA SHRESTHA AND THIS DRILL INSTRUCTOR CHANGED PATIENT CHUCKS AND ATTENDS. ICE PACKS REQUESTED FOR PATIEN'S FEET. ICE PACKS PROVIDERD. NO FUTHER NEEDS AT THIS TIME.
--- NOTE | 2020-11-06 23:53 | NUR ---
Rounded on patient, in bed with HOB elevated, positioned with pillows at sides and under knees. Eyes closed, breathing even and unlabored. Call light in reach.
--- NOTE | 2020-11-07 02:30 | NUR ---
Call light answered, pt transferred to commode with heavy assist, BM x1 large and void. Back to bed and repositioned with pillows, fresh water provided, no further needs at this time.
--- NOTE | 2020-11-07 04:42 | NUR ---
THIS DIRECTOR PERSONAL AND SECOND DIRECTOR PERSONAL TWO PIVOT PT TO BSC, NEW ATTENDS ON, AND PIVOT BACK TO BED, BOOSTED PT UP, PILLOWS BACK IN PLACE, NO FURTHER NEEDS AT THIS TIME
--- NOTE | 2020-11-07 06:46 | NUR ---
GREEN PRIZE PACKER in room to change pt and replenish drinks, take vitals.
--- NOTE | 2020-11-07 06:58 | NUR ---
THIS CHEMICAL OPERATOR AND SECOND CHEMICAL OPERATOR IN TO CHANGE PT ATTENDS, VITALS DONE, I&Os DONE, ORAL CARE AND WASHCLOTH PROVDED FOR PT AT THIS TIME, ICE WATER AN SODA PROVIDED, NO FURTHER NEEDS AT THIS TIME
--- NOTE | 2020-11-07 07:43 | NUR ---
this rn received reprot from carmencita mayers. pt appears to be resting at this time with respirations noted
--- NOTE | 2020-11-07 08:15 | NUR ---
this rn in pts room to check on pt. antony ruiz got pt up to chair this am. pt sitting up to chair and appears to be doing well this am.
--- NOTE | 2020-11-07 08:15 | NUR ---
this rn inspected pts wound sites. all sites are clean/ dry/ intact and this rn did not note any new red areas this am
--- NOTE | 2020-11-07 08:44 | NUR ---
GOT PATIENT UP WE WALKED INTO THE BATHROOM TO USE THE RESTROOM. AFTER SHE WAS DONE WE WALKED TO THE SINK SHE WASHED HER HANDS AND FACE AND BRUSHED HER TEETH. AFTER THAT SHE WANTED TO WALK TO THE OTHER SINK IN HER ROOM AND BACK TO HER CHAIR. PATIENT IS NOW SITTING UP IN HER CHAIR EATING HER BREAKFAST. BED LINENS ARE CHANGED. ASKED PATIENT ABOUT TAKING A SHOWER TODAY AND SHE SAID SHE WILL SEE HOW SHE FEELS.
--- NOTE | 2020-11-07 14:15 | NUR ---
THIS RN IN PTS ROOM TO PROVIDE PT WITH 500MG OF TYLENOL PER PT REQUEST DUE TO CRAMPING IN HER FEET. THIS RN ALSO LIGHTLY MASSAGED PTS FEET TO ASSIST WITH THE CRAMPING. PT RECEIVED SOME RELIEF FROM THIS. PT FLUFFED WITH PILLOWS AND REPOSTIONED TO PTS DESIRES AT THIS TIME
--- NOTE | 2020-11-07 16:11 | NUR ---
PATIENT OFFERED SHOWER. PATIENT REFUSED FOR TODAY. CALL LIGHT WITHIN REACH, DENIES NEEDS AT THIS TIME.
--- NOTE | 2020-11-07 19:10 | NUR ---
Report received from Lori WILKINS. Pt sitting up in chair, warm blanket provided, states no needs at this time. Appears awake and alert, states she had a good day today. Call light in reach.
--- NOTE | 2020-11-07 20:05 | NUR ---
NIHARIKA Duran in room to assist pt to BR and bed. Scheduled medications administered, wounds visualized, allevyns C/D/I with no changes needed. Fresh water and 7up provided. Positioned in bed with pillows, able to use trapeze bar to position self along with assistance. Call light in reach.
--- NOTE | 2020-11-07 22:48 | NUR ---
V/S AND I&O'S TAKEN AND RECORDED. 1 PA/SBA FROM CHAIR TO BATHROOM TO BED. ICE PACK X2 MADE FOR FEET.
--- NOTE | 2020-11-07 23:26 | NUR ---
Pt resting in bed, no apparent needs at this time. Respirations even and unlabored. Call light in reach
--- NOTE | 2020-11-07 23:30 | NUR ---
ANSWERED CALL LIGHT. CHANGED PATIENT'S INCONTINENT ATTENDS. NO OTHER NEEDS AT THIS TIME.
--- NOTE | 2020-11-08 01:33 | NUR ---
ANSWERED CALL LIGHT. 1 PA TO BEDSIDE COMMODE. PATIENT HAD A LARGE HARD BOWEL MOVEMENT. PATIENT ALREADY VOIDED ON THE ATTENDS. PATIENT IS BACK IN BED. CALL LIGHT WITHIN REACH.
--- NOTE | 2020-11-08 01:34 | NUR ---
Visualized pt, resting in bed with eyes closed. Breathing evenly.
--- NOTE | 2020-11-08 02:56 | NUR ---
Call light answered, pt requests assistance to BSC. 1PA with FWW to commode, pt obviously listening to PT/OT recommendations and verbally cues herself through the process of transfer. New reddened area noticed on R side middle back, pt encouraged to lay on L side, positioned with pillows. Pt verbalizes understanding about risk for pressure ulcer. PRN tylenol adminstered per request for 4/10 cramping pain in toes and ankles. Ice packs applied to feet. Pt states no further needs at this time, call button in reach.
--- NOTE | 2020-11-08 03:04 | NUR ---
WOUND ASSESSMENT BY RN #1. RIGHT SHOULDER- ALLEVYN C/D/I- LAST CHANGED 11/02 #2. RIGHT LATERAL ELEBOW- ALLEVYN C/D/I- LAST CHANGED 11/06 #3. RIGHT SUPERIOR HIP- ALLEVYN C/D/I- LAST CHANGED 11/06 #4. RIGHT INFERIOR HIP- ALLEVYN C/D/I -LAST CHANGED 11/02 #5. RIGHT LATERAL CALF- ALLEVYN C/D/I- CHANGED 11/06 #6. RIGHT LATERAL ANKLE- ALLEVYN C/D/I- LAST CHANGED 11/02 #7. LEFT SHOULDER- ALLEVYN C/D/I -LAST CHANGED 11/02 #8. LEFT MEDIAL FOOT- ALLEVYN C/D/I- LAST CHANGED 11/05 -LEFT KNEE, REDDENED AREA- ALLEVYN LAST CHANGED 11/02 -MID LOWER BACK IS A REDDENED AREA- ALLEVYN DRESSING LAST CHANGED 11/02 -MID-UPPER RIGHT BACK REDDENED AREA, PT TURNED TO OPPOSITE SIDE IN BED.
--- NOTE | 2020-11-08 04:00 | NUR ---
Rounded on patient, found awake in bed with severe tremors. Pt requests to use BSC, 1 void, SBA with FWW. Hot packs made and wrapped in pillow cases, applied to bottoms of feet. This RN lightly massaged pt's feet until cramping dissipated. Pt repositioned in bed, floating hips on pillows. Reddened area noted hours ago is markedly improved after last positioning. Pt questions about potential effectiveness of aspercreme or similar for neuropathy in feet, this RN will pass on for today. Hot apple cider made for pt. Call light in reach.
--- NOTE | 2020-11-08 06:36 | NUR ---
Pt states did not sleep well d/t cramping/tremors. PRN tylenol administered x2, light massage, frequent repositioning, heat/ice packs utilized. Pt able to transfer to [facility] with 1PA and FWW. Voiding sufficient. Adequate PO fluid intake. Red area on back noted, shortly after repositioning spot disappeared. All allevyns C/D/I and do not require change this shift. Calls appropriately.
--- NOTE | 2020-11-08 07:43 | NUR ---
this rn received report from carmencita mayers. pt appears to be resting at this time and is up to chair this am
--- NOTE | 2020-11-08 08:15 | NUR ---
THIS RN IN PTS ROOM TO CHECK ON PT THIS AM. PT STATES THAT HER PAIN IS 1/10. PT SITTING UP IN CHAIR AND STATES THAT SHE GOT A GOOD NAP IN THIS AM. PT HAS NOT OTHER CONCERNS THIS AM
--- NOTE | 2020-11-08 09:05 | NUR ---
SPOKE WITH ZACH BERG FROM [facility]. SHE STATES SHE SPOKE WITH PATIENT SUNDAY BY PHONE. SHE WILL MOST LIKELY MEET FOR MEDICAID, BUT THEY ARE STILL WORKING ON THE "GLICH IN THE SYSTEM" REGARDING HER SS NUMBER. SHE STATES SHE GAVE HER THE INFORMATION TO CONTACT THEM WHEN SHE IS READY TO LOOK AT WANTING HELP AT HOME. DISCUSSED THAT WE WILL HAVE [facility] FOLLOW AT DISCHARGE TO MAKE SURE SHE CONTINUES TO GET NEEDED RESOURCES.
--- NOTE | 2020-11-08 09:30 | NUR ---
SPOKE WITH PATIENT IN ROOM. SHE IS UP IN CHAIR HAVING BREAKFAST. EATING WELL. SHE STATES HER SON CAME AND WORKED WITH STAFF ON HOW TO HELP HER AT HOME. SHE FEELS HE IS READY. SHE IS UNSURE IF [id number] HAS THE EQUIPMENT YET. SHE STATES SHE WAS GETTING A COMMODE AND GAIT BELT THROUGH [employer]. PATIENT HAS WALKER AT HOME. DISCUSSED THAT WE WILL FILL HER RX NEEDED FOR HOME BEFORE SHE GOES IF SHE STILL HAS NO INSURANCE WHEN SHE LEAVES. SHE IS GRATEFUL FOR THIS. DISCUSSED THAT WOUND CARE WILL BE ORDERED THROUGH OUT OUTPATIENT CLINIC AT DISCHARGE. SHE STATES HER SON WILL BE ABLE TO TRANSPORT HER TO THIS. DISCUSSED THAT [facility] WILL FOLLOW HER AFTER DISCHARGE FOR NEEDED RESOURCES GOING FORWARD. SHE IS AGREEABLE TO THIS. GAVE HER A [employer] BROCHURE, CONTACT CARDS FOR MYSELF, DENZEL WILKINS, DHARMESH ALVARENGA AND [facility]. NO FURTHER QUESTIONS AT THIS TIME.
--- NOTE | 2020-11-08 09:40 | NUR ---
ATTEMPTED TO CALL [employer] GARCIA [phone] AND [facility] SUMMERS [phone] TO DISCUSS IF THEY HAVE EQUIPMENT IN PLACE AND POSSIBLE DISCHARGE TODAY. NO ANSWER, MESSAGES LEFT FOR BOTH.
--- NOTE | 2020-11-08 10:15 | NUR ---
PATIENT UP TO BATHROOM AND BACK TO CHAIR, SBA FWW. AM CARE AND ORAL CARE DONE AT SINK. VITALS AND I&O'S CHARTED. LINENS CHANGED. PATIENT WANTS TO SHOWER LATER TODAY. CALL LIGHT IN REACH. NO FURTHER NEEDS AT THIS TIME.
--- NOTE | 2020-11-08 11:00 | NUR ---
THIS RN IN PTS ROOM TO GIVE PT HER MORNING MEDS. PT STATES THAT HER PAIN IS 3/10, THIS RN STATED THAT PT COULD BE DUE FOR ANOTHER TYLENOL AT THIS TIME.
--- NOTE | 2020-11-08 12:58 | NUR ---
THIS RN IN PTS ROOM TO ASSIST PT TO THE RESTROOM
--- NOTE | 2020-11-08 13:00 | NUR ---
WAS NOTIFIED BY STAFF THAT SON IS HERE WITH PATIENT. WENT TO THE ROOM BUT PATIENT WAS JUST GETTING BACK TO CHAIR WITH SBA AND USE OF WALKER AFTER USING BATHROOM. PATIENT STATES HE WENT TO THE CAR AND WILL BE RIGHT BACK. SHE DOES NOT KNOW IF THEY WERE ABLE TO COMPLIANCE ADVISOR COMMODE AND GAIT BELT. DR ORO CAME INTO THE ROOM. WE WAITING FOR SON TO RETURN AND DISCUSSED DISCHARGE PREFERNCE TO GO HOME WITH FAMILY. PATIENT STILL WISHES TO PROCEED WITH GOING HOME. SON STATES HE IS GOING TODAY TO COMPLIANCE ADVISOR EQUIPMENT. HE HAD A FORM FROM [employer]. I OFFERED TO FILL OUT AND SEND IN, I DID ON SUNDAY. HE STATES "NO I WILL FILL IT OUT AND GO DOWN THERE WHEN I LEAVE". WE DISCUSSED THAT WE HAVE NOT HEARD FROM MEDICAID YET ON COVERAGE. DR ORO EXPLAINED WE WILL DISPENSE HER MEDS FOR THE MONTH FROM OUR PHARMACY. THIS SHOULD GIVE MEDICAID TIME TO BE SET UP AND FOR HER TO SEE PCP TO ORDER MEDICATIONS GOING FORWARD. SON WANTS FMLA PAPERS FILLED OUT, DR ORO SAID HE NEEDS TO HAVE PCP DO THIS. DISCUSSED SHE SHOULD HAVE APPOINTMENT MADE BEFORE DISCHARGE BY STAFF TO BE SEEN WITHIN A WEEK. SON STATES HE IS NOT DONE "CLEARING OUT THE HOUSE". WHEN WE EXPLAINED SHE IS MEDICALLY READY FOR DISCHARGE WE ASKED WHAT THEY THINK IS REASONABLE TIME. HE ASKS IF HE CAN TAKE HER HOME TOMORROW. DR ORO AGREED. WHEN ASKED IF THERE WAS ANYTHING ELSE, THEY ASKED IF THEY CAN GET A HOSPITAL BED. I EXPLAINED THAT ALTHOUGH THE DOCTOR CAN WRITE AN RX AND DOCUMENT NEED, SINCE SHE HAS NO INSURANCE AT THIS TIME THEY WOULD BE RESPONSIBLE FOR COST. I EXPLAINED ONE CAN BE RENTED MONTHLY. I TOLD THEM I CAN FIND OUT SOME PRICES FOR THEM. DISCUSSED DME'S IN THE AREA, WITH ONLY IN-HOME BEING FROM [employer]. PATIENT STATES SHE WANTS TO USE IN-HOME. CALLED IN-HOME AND GOT MONTHLY RENTAL [phone]. GAVE THIS INFORMATION TO SON AND PATIENT. HE STATES HE WILL CALL THEM AND SEE IF THEY CAN GET BED DELIVERED. GAVE HIM THE NUMBER. NO OTHER QUESTIONS AT THIS TIME.
[2020-11-08] MEDS ORDERED: PROAIR HFA8.5 GM IH (13:06)
[2020-11-08] MEDS ORDERED: CARBIDOPA-LEVO1 EAC1 PO (13:06)
--- NOTE | 2020-11-08 13:06 | NUR ---
PT ALERT, ORIENTED AND SITTING IN CHAIR. PT HAS A BRIGHT SMILE, APPEARS STRONGER. PT COMPLAINED OF TREMORS IN HAND BUT THAT SHE FELT GOOD WALKING AND FEELS STRONGER. HAD GOOD VISIT, FRANKY FIGUEREDO REAFFIRMS THAT PT IS WORKING HARD TO IMPROVE AND DC. GAVE BLESSING, WILL FOLLOW
[2020-11-08] MEDS ORDERED: GABAPENTIN100 MG PO (13:27)
--- NOTE | 2020-11-08 14:30 | NUR ---
THIS RN IN PTS ROOM TO ASSIT PT TO THE RESTROOM. THIS RN INSPECTED ALL WOUNDS. PER LOBITO WILKINS'S NOTE, THIS RN NOTED NO NEW CHANGES TO WOUNDS
--- NOTE | 2020-11-08 14:52 | NUR ---
PATIENT IN BED RESTING. PATIENT DECIDED BED BATH TODAY THEN A SHOWER TOMORROW MORNING BEFORE DC. SHOWER CAP AND WARM BATH WIPES USED. ASHLEY CARE, SKIN CARE, SHAMPOO CAP DONE. VITALS AND I&O'S CHARTED. CALL LIGHT IN REACH. NO FURTHER NEEDS AT THIS TIME.
--- NOTE | 2020-11-08 15:00 | NUR ---
RECEIVED VOICEMAIL IN OFFICE FROM SON ROBERTO. HE STATES HE WAS CONFUSED ABOUT WHAT INSURANCE PATIENT IS GETTING. STATES THEY DON'T WANT "STATE INSURANCE". CALLED HIM BACK. HE STATES THEY DO NOT WANT STATE MEDICAID. THEY THOUGHT WE WERE GETTING DISABILITY FOR HER. EXPLAINED THE DIFFERENCE. EXPLAINED DISABILITY TAKES A LONGER TIME AND WE DON'T DO THAT FROM ACUTE CARE. EXPLAINED WHY MEDICAID WAS APPLIED FOR. EXPLAINED HIS MOM STATES SHE HAS NO MONEY AND NEEDS COVERED FOR MEDS, WOUND CARE, ETC. DISCUSSED THAT I WILL TALK WITH HIS MOM.
--- NOTE | 2020-11-08 15:15 | NUR ---
CALLED YOSELYN FROM OUT FINANCIAL OFFICE. DISCUSSED THE PHONE CALL FROM SON. SHE STATES SHE SPENT "QUITE A BIT OF TIME" WITH PATIENT AND SHE DISCUSSED THAT THEY WERE WORKING ON MEDICAID. SHE STATES THE PATIENT STATED UNDERSTANDING OF WHAT THEY WERE TRYING TO GET SET UP.
--- NOTE | 2020-11-08 17:00 | NUR ---
SPOKE WITH PATIENT IN ROOM. DISCUSSED PHONE CALL FROM SON. ASKED IF SHE UNDERSTOOD WHAT STATE MEDICAID IS THAT WE HAVE ALL BEEN TALKING WITH HER ABOUT AND THAT SHE WANTED TO HELP WITH MEDICAL COSTS. SHE STATES "OH I KNOW WHAT MEDICAID IS, BUT I DON'T WANT THAT". I ASKED WHAT SHE WANTS, AND SHE STATES SHE WANTS DISABILITY. I DISCUSSED THAT WE DON'T SIGN PEOPLE UP FROM ACUTE CARE FOR DISABILITY. DISCUSSED BENEFITS OF MEDICAID UNTIL SHE POSSIBLY CAN GET MEDICAID. SHE STILL STATES SHE DOESN'T WANT IT BECAUSE "THEY TAKE YOUR ASSETS". I ASKED WHAT SHE IS WORRIED ABOUT, IF SHE OWNED REAL ESTATE AND SHE SAID NO. BUT AFTER ASKING MORE, THE HOME SHE IS IN WAS IN HER LATE HUSBANDS NAME AND SHE DOESN'T WANT IT SOLD TO PAY FOR MEDICAID. I EXPLAINED THAT AT LEAST SHE WOULD HAVE CARE THAT SHE NEEDS. BUT SHE STATES "WELL I WILL TALK WITH MELINA".
--- NOTE | 2020-11-08 19:20 | NUR ---
BEDSIDE REPORT RECEIVED FROM FRANKY FIGUEREDO. pt RESTING IN BED AWAKE, LEGS ELEVATED ON PILLOWS. CALL LIGHT AND PERSONAL SUPPLIES IN REACH. NO REQUESTS AT THIS TIME.
--- NOTE | 2020-11-08 20:16 | NUR ---
ASSESSMENT COMPLETE. pt DENIES PAIN, C/O LEG DISCOMFORT "LIKE A BURNING STINGING IN LEGS" TINGLING NOTED BLE, SCHEDULED MEDICATION ADMIINISTERED. pt DENIES PRN TYLENOL ADMINISTRATION. LEGS REPOSITIONED ON PILLOWS. STRONG PEDAL PULSES. ASSISTED TO REPOSITION TO RIGHT SIDE. CALL LIGHT AND PERSONAL SUPPLIES IN REACH. ICE WATER REFILLED.
--- NOTE | 2020-11-08 20:20 | NUR ---
PATIENT'S INCONTINENT ATTENDS CHANGED.
--- NOTE | 2020-11-08 22:30 | NUR ---
CALL LIGHT ANSWERED. PATIENT'S INCONTINENT ATTENDS CHANGED. CALL LIGHT WITHIN REACH.
--- NOTE | 2020-11-09 00:10 | NUR ---
CHECKED ON pt. RESTING IN BED WITH EYES CLOSED. BREATHING UNLABORED, RR 18. LEGS ELEVATED, CALL LIGHT BUTTON IN REACH.
--- NOTE | 2020-11-09 03:04 | NUR ---
CALL LIGHT ON. ASSISTED pt TO CHANGE DEPENDS AND REPOSITION. PERIPAD SATURATED, ASHLEY CARE DONE. NO FURTHER REQUESTS AT THIS TIME. CALL LIGHT WITHIN REACH.
--- NOTE | 2020-11-09 04:24 | NUR ---
CALL LIGHT ANSWERED. ASSISTED BACK TO BED 1PA WITH FWW FROM [facility]. TREMORS NOTED. pt INDEPENDENT WITH ASHLEY CARE, TRANSFER INTO BED. ATTENDS IN PLACE. ASSESSMENT COMPLETE. ALLEVYNS IN PLACE AND INTACT. pt DENIES PAIN. DENIES ANY ADDITIONAL NEEDS AT THIS TIME. LEGS ELEVATED. CALL LIGHT IN REACH.
--- NOTE | 2020-11-09 05:58 | NUR ---
pt RESTED WELL THIS SHIFT. 1PA TO BSC W FWW. EPISODES OF INCONTINENCE IN ATTENDS, CHANGED. ABLE TO TRANSFER SELF INTO BED INDEPENDENTLY. ALLEVYNS IN PLACE, DRY AND INTACT. DISCHARGE HOME TODAY WITH SON.
--- NOTE | 2020-11-09 06:35 | NUR ---
CALL LIGHT ANSWERED. 1PA TO BSC FOR VOID. pt RATES PAIN 1/10, REQUESTING TYLENOL THEN REFUSING AFTER BACK IN BED. SCHEDULED MEDICATIONS ADMINISTERED. PERSONAL SUPPLIES AND CALL LIGHT IN REACH. PO FLUIDS PROVIDED.
--- NOTE | 2020-11-09 09:00 | NUR ---
Patient resting in bed, alert and oriented x4. Patient has no distress and denies pain at this time. Personal supplies and call light within reach.
--- NOTE | 2020-11-09 09:30 | NUR ---
Spoke with pt and attempted to clarify the difference between OHP/medicaid and Senior Care Medicaid through DHS. Pt at this time is refusing OHP and [place] Medicaid through [employer]. Attempted to explain, if she does not have OHP benefits she will be responsible for her 11 day stay here and also if she wants wound care at the wound clinic. Pt again denies wanting OHP and asks I call her TRINA Lexy Morley. Called and left a messafe for Lexy requesting she call me.
--- NOTE | 2020-11-09 10:30 | NUR ---
Received order for pt to have wound care completed at [facility]. Called Michelle Keyes and left a message requesting to know if Admin will auth. Wound care at the Wound clinic without insurance.
--- NOTE | 2020-11-09 10:42 | NUR ---
PATIENT UP TO SHOWER CHAIR AND BACK TO CHAIR, 1PA FWW. PATIENT ASSISTED IN SHOWER. ASHLEY CARE, SKIN CARE, SHAMPOO DONE. LINENS CHNAGED. FRESH ATTENDS AND GOWN IN PLACE. VITALS AND I&O'S CHARTED. CALL LIGHT IN REACH. NO FURTHER NEEDS AT THIS TIME.
--- NOTE | 2020-11-09 11:00 | NUR ---
Spoke with lEijah Diaz, SAIL LAY OUT WORKER. He will auth María to be see at the wound clinic for her wound care without insurance. Hopefully she will obtain OHP and accept.
--- NOTE | 2020-11-09 11:52 | NUR ---
Spoke with Theresa at the front office agent. Pt has been discharged and they are awaiting family to pick her up. UPdated Elijah Diaz authed for OP wound care at Wound clinic without insurance.
--- NOTE | 2020-11-09 12:48 | NUR ---
Assisted patient to bed per her request. Lunch ordered and to patient. Patient has no needs. Repositioned in bed. Call light within reach.
--- NOTE | 2020-11-09 14:20 | NUR ---
Spoke with pts son when he arrived to take pt home. States everything is ready for pt and hospital bed and wc have arrived. I updated pt has declined OHP and explained OHP is different from Engineering [employer] Medicaid. We discussed Admin auth. for pt to have wound care at the Wound clinic and they are awaiting insurance. They will call them with an appt time for next week.
--- NOTE | 2020-11-09 14:27 | NUR ---
PT SITING UP IN BED, VISITING ON PHONE. PT WAVED, GAVE BLESSING
--- NOTE | 2020-11-10 10:00 | NUR ---
Notified by pharm they were only able to complete a partial fill on Carbo/levo and Gabapenten. Medication is now in. Notified I will call the son. attempted to call and could not reach, message left. He returned my call at 1 pm and will be here in 20 min. Meds placed in a blue bag and taken to Information dest at the lobby. Labeled with pt and son's name and they will give tohim when he arrives.
== END 2020-11-09 14:35 | disposition home or self-care (01) | DRG 56 ==
LOC: ED 15:24 → CCU 18:40 → MS 11-01 20:58
PROVIDERS: ADMIT Internal Medicine; ATTEND Internal Medicine
DX: G20 Parkinson's disease (principal); R65.11 Systemic inflammatory response syndrome (SIRS) of non-infectious origin with acute organ dysfunction; R53.2 Functional quadriplegia; N17.9 Acute kidney failure, unspecified; Z20.822 Contact with and (suspected) exposure to COVID-19; E86.0 Dehydration; J44.9 Chronic obstructive pulmonary disease, unspecified; L89.122 Pressure ulcer of left upper back, stage 2; L89.110 Pressure ulcer of right upper back, unstageable; L89.212 Pressure ulcer of right hip, stage 2; L89.511 Pressure ulcer of right ankle, stage 1; L89.011 Pressure ulcer of right elbow, stage 1; L89.620 Pressure ulcer of left heel, unstageable; L89.892 Pressure ulcer of other site, stage 2; L89.891 Pressure ulcer of other site, stage 1; Z79.899 Other long term (current) drug therapy; Z79.51 Long term (current) use of inhaled steroids
CPT/HCPCS: 36415; 51702; 71045; 80053; 81001; 82550; 83605; 83735; 84100; 85025; 87040; 87088; 93005; 93010; 97110; 97116; 97140; 97163; 97167; 97530; 97535; 99285-25; C9803; J0696; J1650; J3475; J3480; J7030; J7121; U0003

== ENCOUNTER 2021-10-10 18:18 | Emergency (ER) | payer OTHER ==
[~2021-10-10] VITALS: Ht 162.6 cm; Wt 52.2 kg
[~2021-10-10 18:18] MED LIST changes: +CARBIDOPA-LEVO1 EAC1 PO; +GABAPENTIN100 MG PO
--- OUTSIDE RECORDS SUMMARY | 2021-10-10 18:20 | XMS ---
Rehana Notification: MANDI HOWARD Security Community Health Advocate Events No recent Security Events currently on file CRITERIA MET - PDMP CARE PROVIDERS YOLANDA HECTOR Physician [employer] Current PHONE: [phone] Eusebio has no Care Guidelines for this patient. EBilly VISIT COUNT (12 MO.) 2 [facility] TOTAL 2 NOTE: Visits indicate total known visits. ED/UCC VISIT TRACKING (12 MO.) 10/10/2021 18:18 [facility] [place] TYPE: Emergency COMPLAINT: - RT FOOT PAIN 10/30/2020 15:24 [facility] [place] TYPE: Emergency COMPLAINT: - GROUND LEVEL FALL INPATIENT VISIT TRACKING (12 MO.) 10/30/2020 18:40 [facility] [place] TYPE: Medical Surgical COMPLAINT: - SEPSIS/UTI DIAGNOSES: - Pressure ulcer of right hip, stage 2 - Pressure ulcer of right ankle, stage 1 - Functional quadriplegia - exterminator helper (current) use of inhaled steroids - Chronic obstructive pulmonary disease, unspecified - Systemic inflammatory response syndrome (SIRS) of non-infectious origin with acute organ dysfunction - Dehydration - Parkinson's disease - Other half-way (current) drug therapy - Pressure ulcer of right upper back, unstageable - Pressure ulcer of left upper back, stage 2 - Acute kidney failure, unspecified - Pressure ulcer of left heel, unstageable - Pressure ulcer of other site, stage 1 - Sepsis, unspecified organism - Pressure ulcer of other site, stage 2 - Pressure ulcer of right elbow, stage 1 [email or web address]
[2021-10-10] MEDS ORDERED: AUGMENTIN 875-1 EACH PO (20:23)
== END 2021-10-10 20:44 | disposition home or self-care (01) ==
LOC: ED 18:18
DX: S90.551A Superficial foreign body, right ankle, initial encounter (principal); L08.9 Local infection of the skin and subcutaneous tissue, unspecified; J45.909 Unspecified asthma, uncomplicated; G20 Parkinson's disease; Z88.8 Allergy status to other drugs, medicaments and biological substances; Z91.09 Other allergy status, other than to drugs and biological substances; Z79.899 Other long term (current) drug therapy; W45.8XXA Other foreign body or object entering through skin, initial encounter
CPT/HCPCS: 73610; 99283-25

== ENCOUNTER 2021-10-21 19:07 | Emergency (ER) | payer OTHER ==
[~2021-10-21] VITALS: Ht 162.6 cm; Wt 57.6 kg
[~2021-10-21 19:07] MED LIST changes: +AUGMENTIN 875-1 EACH PO
--- OUTSIDE RECORDS SUMMARY | 2021-10-21 19:10 | XMS ---
PreManage Notification: MANDI HOWARD Security Profiler Events No recent Security Events currently on file CRITERIA MET - [facility] - 2 Visits in 30 Days CARE PROVIDERS YOLANDA HECTOR Physician Senior Mortgage Underwriter Current PHONE: [phone] Eusebio has no Care Guidelines for this patient. Chan VISIT COUNT (12 MO.) 3 [facility] TOTAL 3 NOTE: Visits indicate total known visits. ED/UCC VISIT TRACKING (12 MO.) 10/21/2021 19:07 [facility] [place] TYPE: Emergency COMPLAINT: - PAIN 10/10/2021 18:18 [facility] [place] TYPE: Emergency COMPLAINT: - RT FOOT PAIN DIAGNOSES: - Unspecified asthma, uncomplicated - Parkinson's disease - Allergy status to other drugs, medicaments and biological substances - Superficial foreign body, right ankle, initial encounter - Local infection of the skin and subcutaneous tissue, unspecified - Other osteomyelitis, lower leg - Other foreign body or object entering through skin, initial encounter - Other allergy status, other than to drugs and biological substances - Other salvage determiner (current) drug therapy - Disorder of the skin and subcutaneous tissue, unspecified 10/30/2020 15:24 [facility] [place] TYPE: Emergency COMPLAINT: - GROUND LEVEL FALL INPATIENT VISIT TRACKING (12 MO.) 10/30/2020 18:40 [facility] [place] TYPE: Medical Surgical COMPLAINT: - SEPSIS/UTI DIAGNOSES: - Pressure ulcer of right hip, stage 2 - Pressure ulcer of right ankle, stage 1 - Functional quadriplegia - senior care (current) use of inhaled steroids - Chronic obstructive pulmonary disease, unspecified - Systemic inflammatory response syndrome (SIRS) of non-infectious origin with acute organ dysfunction - Dehydration - Parkinson's disease - Other salvage determiner (current) drug therapy - Pressure ulcer of right upper back, unstageable - Pressure ulcer of left upper back, stage 2 - Acute kidney failure, unspecified - Pressure ulcer of left heel, unstageable - Pressure ulcer of other site, stage 1 - Sepsis, unspecified organism - Pressure ulcer of other site, stage 2 - Pressure ulcer of right elbow, stage 1 [email or web address]
[2021-10-21] MEDS ORDERED: CEPHALEXIN500 MG PO (22:38)
[2021-10-21] MEDS ORDERED: BACTRIM DS TAB1 EACH PO (22:38)
[2021-10-21] MEDS ORDERED: HYDROCODON-ACE1 EA10 PO (22:38)
--- NOTE | 2021-10-22 12:06 | EKG ---
[facility] [address] [place], [place] [address] Signed Sinus tachycardia Otherwise normal ECG No previous ECGs available Confirmed by VADIM ORO DO ([id number]) on 10/22/2021 12:05:59 PM Electronically Signed By: VADIM ORO DO 10/22/21 1206 PATIENT NAME: MANDI HOWARD Electrocardiogram DATE OF : 58 PHYSICIAN: VADIM ORO DO REPORT #: [id number] REPORT IS CONFIDENTIAL AND NOT TO BE RELEASED WITHOUT AUTHORIZATION
== END 2021-10-21 23:01 | disposition home or self-care (01) ==
LOC: ED 19:07
DX: L03.115 Cellulitis of right lower limb (principal); J45.909 Unspecified asthma, uncomplicated; G20 Parkinson's disease; Z88.8 Allergy status to other drugs, medicaments and biological substances; Z91.09 Other allergy status, other than to drugs and biological substances; Z79.899 Other long term (current) drug therapy; Z20.822 Contact with and (suspected) exposure to COVID-19
CPT/HCPCS: 36415; 71045; 73610; 80053; 81001; 83605; 85025; 85610; 85730; 93005; 93010; 96365; 96375; 99284-25; C9803; J1170; J2405; J3370; J7030; J7060; U0003

== ENCOUNTER 2023-01-14 07:16 | Emergency (ER) | payer MEDICARE, OTHER ==
[~2023-01-14] VITALS: Ht 162.6 cm; Wt 50.4 kg
[~2023-01-14 07:16] MED LIST changes: +BACTRIM DS TAB1 EACH PO; +CEPHALEXIN500 MG PO; +HYDROCODON-ACE1 EA10 PO
[2023-01-14 16:45] VITALS: BP 134/78
--- NOTE | 2023-01-14 22:56 | EKG ---
[facility] [address] [place] [address] Signed Sinus tachycardia Nonspecific ST and T wave abnormality Abnormal ECG When compared with ECG of 21-OCT-2021 21:06, Nonspecific T wave abnormality now evident in Lateral leads Confirmed by Shelton Croft MD () on 01/14/2023 10:56:28 PM Electronically Signed By: SHELTON CROFT MD 01/14/23 2256 PATIENT NAME: MANDI HOWARD AGUILA Electrocardiogram DATE OF : 58 PHYSICIAN: SHELTON CROFT MD REPORT #: [id number] REPORT IS CONFIDENTIAL AND NOT TO BE RELEASED WITHOUT AUTHORIZATION
== END 2023-01-14 16:45 | disposition short-term general hospital (02) ==
LOC: ED 07:16
DX: E87.0 Hyperosmolality and hypernatremia (principal); S72.141A Displaced intertrochanteric fracture of right femur, initial encounter for closed fracture; I82.442 Acute embolism and thrombosis of left tibial vein; I82.452 Acute embolism and thrombosis of left peroneal vein; G20 Parkinson's disease; J45.909 Unspecified asthma, uncomplicated; W19.XXXA Unspecified fall, initial encounter; Z91.09 Other allergy status, other than to drugs and biological substances; Z88.8 Allergy status to other drugs, medicaments and biological substances; Z20.822 Contact with and (suspected) exposure to COVID-19
CPT/HCPCS: 36415; 51702; 71045; 71260; 73502; 80053; 81001; 82553; 83605; 85025; 85610; 85730; 87502; 93005; 93010; 93970; 99285-25; C9803; J0690; J1170; J1644; J2405; J7030; Q9967; U0003